=== PATIENT | female | born 1990 ===

== ENCOUNTER 2020-03-12 13:59 | Outpatient (CLI) | payer OTHER, SELFPAY ==
[2020-03-12 15:53] LABS: Add Manual Diff / Slide Review NO; Basophils Absolute Auto 0 /uL (0-100); Basophils Percent Auto 0.3 % (0-2); Eosinophils Absolute Auto 100 /uL (0-450); Eosinophils Percent Auto 0.5 % (2-4); Hematocrit 34.9 % (36-46); Hemoglobin 11.9 g/dL (12.0-16.0); Lymphocytes Absolute Auto 1700 /uL (1100-4500); Lymphocytes Percent Auto 15.2 % (25-40); Mean Corpuscular HGB Conc 34.2 % (30-36); Mean Corpuscular Hemoglobin 32.3 PG (26-34); Mean Corpuscular Volume 94.6 fL (80-100); Monocytes Absolute Auto 900 /uL (0-900); Monocytes Percent Auto 7.8 % (3-14); Neutrophils Absolute Auto 8500 /uL (1500-7000); Neutrophils Percent Auto 76.2 % (50-75); Platelet Count 304 X10^3/uL (150-400); Red Blood Cell Count 3.69 X10^6/uL (4.0-5.2); Red Cell Distribution Width 14.1 % (11.6-14.8); White Blood Cell Count 11.1 X10^3/uL (4.5-11.0)
--- NOTE | 2020-03-12 16:04 | P.TNLD_ITS ---
Visit Information Visit Information Date of evaluation: 03/16/20 Primary OB Provider: Maddie Mike Reason for Evaluation: Yes non-stress test Comments/Additional reasons for admission: Patient presents for scheduled NST for heavily calcified placenta [facility] Medical History Acid reflux Colitis (~11/2017) Eczema H/O being hospitalized (~11/2017) HPV (human papilloma virus) anogenital infection (~02/2018) Hyperemesis gravidarum Migraine Ovarian cyst SAB (spontaneous ) (~07/2017) Surgical History H/O colposcopy with cervical biopsy (~02/2018) H/O laparoscopy (~01/2017) H/O wisdom tooth extraction Family History Mother Endometriosis Father Ulcerative colitis Grandmother Cancer Grandfather Cancer Grandmother Leukemia Hemorrhage affecting 10th Grandfather Diabetes mellitus Altered cardiac tissue perfusion History of open heart surgery Tremors of nervous system Family/Other Cancer Family/Other Diverticulitis Family/Other Ovarian cancer Family/Other No problems noted. Social History marital status: household members: spouse lives independently: Yes pets and animals: No education level: high school (continued Ed) occupational status: unemployed current occupational exposures/hazards: No special tacos needs: No Smoking Status: Never smoker second hand exposure: No (Not currently but growing up : yes) alcohol intake: former (pre- : rare use) substance use type: does not use Objective Labs Result Diagrams: 03/12/20 15:47 03/12/20 15:47 Labs: Laboratory Results - last 24 hr 03/12/20 15:47 WBC 11.1 H RBC 3.69 L Hgb 11.9 L Hct 34.9 L MCV 94.6 MCH 32.3 MCHC 34.2 RDW 14.1 Plt Count 304 Neut % (Auto) 76.2 H Lymph % (Auto) 15.2 L [place] % (Auto) 7.8 Eos % (Auto) 0.5 L Baso % (Auto) 0.3 Neut # (Auto) 8500 H Lymph # (Auto) 1700 [place] # (Auto) 900 Eos # (Auto) 100 Baso # (Auto) 0 Evaluation Evaluation Laboratory results: Laboratory Tests 03/12/20 15:47 WBC 11.1 H RBC 3.69 L Hgb 11.9 L Hct 34.9 L MCV 94.6 MCH 32.3 MCHC 34.2 RDW 14.1 Plt Count 304 Neut % (Auto) 76.2 H Lymph % (Auto) 15.2 L [place] % (Auto) 7.8 Eos % (Auto) 0.5 L Baso % (Auto) 0.3 Neut # (Auto) 8500 H Lymph # (Auto) 1700 [place] # (Auto) 900 Eos # (Auto) 100 Baso # (Auto) 0
[2020-03-12 16:12] LABS: Aspartate Aminotransferase 22 IU/L (14-36); BUN Creatinine Ratio 13.7 (6-22); Blood Urea Nitrogen 7 mg/dL (7-17); Estimated Glomerular Filt Rate > 60.0 mL/min (>60); Uric Acid 3.5 mg/dL (2.5-6.2)
[2020-03-12 19:32] LABS: Creatinine Urine Random 77.9 mg/dL; Protein (Total) Urine Random 13 mg/dL (0-12); Protein Creatinine Ratio Urine 0.16 GRAM/24H
== END 2020-03-12 16:20 | disposition home or self-care (01) ==
LOC: LAB 15:23 → LABOR 16:11
PROVIDERS: Referring Provider Obstetrics & Gynecology; Visit Provider Obstetrics & Gynecology
DX: O14.90 Unspecified pre-eclampsia, unspecified trimester (principal); Z3A.36 36 weeks gestation of pregnancy
CPT/HCPCS: 36415; 59025; 82570; 84156; 84450; 84550; 85025; 87653; G0378

== ENCOUNTER 2020-03-16 14:42 | Outpatient (CLI) | payer OTHER, SELFPAY ==
--- NOTE | 2020-03-16 16:14 | PM.OBTRLD ---
Visit Information Visit Information Date of evaluation: 03/16/20 Primary OB Provider: Maddie Mike Reason for Evaluation: Yes non-stress test Comments/Additional reasons for admission: This patient is a 29-year-old at 36 and 4 with her 1st , in biweekly testing for a heavily calcified placenta on ultrasound with no other complications. Vital Signs Vital Signs: 106/61, hr 93 PFSH Medical History Acid reflux Colitis (~11/2017) Eczema H/O being hospitalized (~11/2017) HPV (human papilloma virus) anogenital infection (~02/2018) Hyperemesis gravidarum Migraine Ovarian cyst SAB (spontaneous ) (~07/2017) Surgical History H/O colposcopy with cervical biopsy (~02/2018) H/O laparoscopy (~01/2017) H/O wisdom tooth extraction Family History Mother Endometriosis Father Ulcerative colitis Grandmother Cancer Grandfather Cancer Grandmother Leukemia Hemorrhage affecting 10th Grandfather Diabetes mellitus Altered cardiac tissue perfusion History of open heart surgery Tremors of nervous system Family/Other Cancer Family/Other Diverticulitis Family/Other Ovarian cancer Family/Other No problems noted. Social History marital status: household members: spouse lives independently: Yes pets and animals: No education level: high school (continued Ed) occupational status: unemployed current occupational exposures/hazards: No special tacos needs: No Smoking Status: Never smoker second hand exposure: No (Not currently but growing up : yes) alcohol intake: former (pre- : rare use) substance use type: does not use Evaluation Evaluation Baseline heart rate: 140 Variability: Moderate (11-25) monitor accelerations: Present monitor decelerations: Absent Contraction Frequency (minutes): 1 Uterine Contraction Intensity: Mild Category of Tracing: Reactive Status: Category l Cervical dilation (cm): 0 Comments: Asymptomatic contractions on presentation, spontaneously resolved. Diagnosis, Plan/Disposition Plan/Disposition Plan: Patient scheduled for follow-up in 3 days. Routine precautions discussed. OB Disposition: home
== END 2020-03-16 16:25 | disposition home or self-care (01) ==
LOC: LABOR 14:59 → OB 03-17 09:02
PROVIDERS: Referring Provider Obstetrics & Gynecology; Visit Provider Obstetrics & Gynecology
DX: O43.893 Other placental disorders, third trimester (principal); Z3A.36 36 weeks gestation of pregnancy
CPT/HCPCS: 59025; 87081; G0378; G0379

== ENCOUNTER 2020-03-19 16:34 | Outpatient (CLI) | payer OTHER, SELFPAY ==
--- NOTE | 2020-03-19 17:14 | PM.OBTRLD ---
Visit Information Visit Information Date of evaluation: 03/19/20 Primary OB Provider: Maddie Mike Reason for Evaluation: Yes non-stress test Comments/Additional reasons for admission: Patient @37+0, in biweekly testing for calcified placenta. No other complications or complaints. Vital Signs Vital Signs: 100/69, HR 99 PFSH Medical History Acid reflux Colitis (~11/2017) Eczema H/O being hospitalized (~11/2017) HPV (human papilloma virus) anogenital infection (~02/2018) Hyperemesis gravidarum Migraine Ovarian cyst SAB (spontaneous ) (~07/2017) Surgical History H/O colposcopy with cervical biopsy (~02/2018) H/O laparoscopy (~01/2017) H/O wisdom tooth extraction Family History Mother Endometriosis Father Ulcerative colitis Grandmother Cancer Grandfather Cancer Grandmother Leukemia Hemorrhage affecting 10th Grandfather Diabetes mellitus Altered cardiac tissue perfusion History of open heart surgery Tremors of nervous system Family/Other Cancer Family/Other Diverticulitis Family/Other Ovarian cancer Family/Other No problems noted. Social History marital status: household members: spouse lives independently: Yes pets and animals: No education level: high school occupational status: unemployed current occupational exposures/hazards: No special tacos needs: No Smoking Status: Never smoker second hand exposure: No (Not currently but growing up : yes) alcohol intake: former substance use type: does not use Review of Systems Constitutional Constitutional: Reports system reviewed and no additional complaints, except as documented Evaluation Evaluation Baseline heart rate: 145 Variability: Moderate (11-25) monitor accelerations: Present monitor decelerations: Absent Uterine Contraction Intensity: Mild Category of Tracing: Reactive Status: Category l Diagnosis, Plan/Disposition Plan/Disposition Plan: Home with routie precautions. OB Disposition: home
== END 2020-03-19 17:30 | disposition home or self-care (01) ==
LOC: LABOR 16:38 → OB 03-20 11:05
PROVIDERS: Referring Provider Obstetrics & Gynecology; Visit Provider Obstetrics & Gynecology
DX: O43.893 Other placental disorders, third trimester (principal); Z3A.37 37 weeks gestation of pregnancy
CPT/HCPCS: 59025; G0378; G0379

== ENCOUNTER 2020-03-22 23:52 | Outpatient (CLI) | payer OTHER, SELFPAY | END 2020-03-23 00:39 | disposition home or self-care (01) | LOC: OB 03-23 15:29 | PROVIDERS: Referring Provider Obstetrics & Gynecology; Visit Provider Obstetrics & Gynecology | DX: O43.893 Other placental disorders, third trimester (principal); R10.2 Pelvic and perineal pain; Z3A.37 37 weeks gestation of pregnancy | CPT/HCPCS: 59025; G0378; G0379 ==

== ENCOUNTER 2020-03-26 16:15 | Outpatient (CLI) | payer OTHER, SELFPAY ==
--- NOTE | 2020-03-26 17:08 | P.TNLD_ITS ---
Visit Information Visit Information Date of evaluation: 03/26/20 Primary OB Provider: Maddie Mike On-call OB Provider: Reema Rodriguez Reason for Evaluation: Yes non-stress test non-stress test reason: other (Grade 3 placenta) Vital Signs Vital Signs: Blood pressure 112/72, pulse 92, temperature 97.1? [facility] Medical History Acid reflux Colitis (~11/2017) Eczema H/O being hospitalized (~11/2017) HPV (human papilloma virus) anogenital infection (~02/2018) Hyperemesis gravidarum Migraine Ovarian cyst SAB (spontaneous ) (~07/2017) Surgical History H/O colposcopy with cervical biopsy (~02/2018) H/O laparoscopy (~01/2017) H/O wisdom tooth extraction Family History Mother Endometriosis Father Ulcerative colitis Grandmother Cancer Grandfather Cancer Grandmother Leukemia Hemorrhage affecting 10th Grandfather Diabetes mellitus Altered cardiac tissue perfusion History of open heart surgery Tremors of nervous system Family/Other Cancer Family/Other Diverticulitis Family/Other Ovarian cancer Family/Other No problems noted. Social History marital status: household members: spouse lives independently: Yes pets and animals: No education level: high school occupational status: unemployed current occupational exposures/hazards: No special tacos needs: No Smoking Status: Never smoker second hand exposure: No (Not currently but growing up : yes) alcohol intake: former substance use type: does not use Review of Systems Review of Systems Narrative: Patient denies headaches, scotomata, epigastric pain. Good movement. No leakage of fluid. No contractions. ROS: Yes All systems reviewed with the patient and are negative except as otherwise documented Evaluation Evaluation Baseline heart rate: 130 Variability: Moderate (11-25) monitor accelerations: Present monitor decelerations: Absent Contraction Frequency (minutes): 0 Category of Tracing: Reactive Status: Category l Diagnosis, Plan/Disposition Final Diagnosis (1) Placental abnormality in third trimester: Status: Acute Plan/Disposition Plan: Reactive nonstress test. Patient is to continue nonstress tests and visits as previously scheduled OB Disposition: home
== END 2020-03-26 17:12 | disposition home or self-care (01) ==
LOC: OB 03-27 08:35
PROVIDERS: Referring Provider Specialist; Visit Provider Specialist
DX: O43.193 Other malformation of placenta, third trimester (principal); Z3A.38 38 weeks gestation of pregnancy
CPT/HCPCS: 59025; G0378; G0379

== ENCOUNTER 2020-03-30 16:59 | Outpatient (CLI) | payer OTHER, SELFPAY ==
--- NOTE | 2020-03-30 17:13 | PM.OBTRLD ---
Visit Information Visit Information Date of evaluation: 03/30/20 Primary OB Provider: Maddie Mike Reason for Evaluation: Yes non-stress test Comments/Additional reasons for admission: Scheduled NST for grade 3 placenta, no other complaints. @39+0. Declines induction. Vital Signs Vital Signs: 111/75, HR 78 PFSH Medical History Acid reflux Colitis (~11/2017) Eczema H/O being hospitalized (~11/2017) HPV (human papilloma virus) anogenital infection (~02/2018) Hyperemesis gravidarum Migraine Ovarian cyst SAB (spontaneous ) (~07/2017) Surgical History H/O colposcopy with cervical biopsy (~02/2018) H/O laparoscopy (~01/2017) H/O wisdom tooth extraction Family History Mother Endometriosis Father Ulcerative colitis Grandmother Cancer Grandfather Cancer Grandmother Leukemia Hemorrhage affecting 10th Grandfather Diabetes mellitus Altered cardiac tissue perfusion History of open heart surgery Tremors of nervous system Family/Other Cancer Family/Other Diverticulitis Family/Other Ovarian cancer Family/Other No problems noted. Social History marital status: household members: spouse lives independently: Yes pets and animals: No education level: high school occupational status: unemployed current occupational exposures/hazards: No special tacos needs: No Smoking Status: Never smoker second hand exposure: No (Not currently but growing up : yes) alcohol intake: former substance use type: does not use Review of Systems Constitutional Constitutional: Reports system reviewed and no additional complaints, except as documented Evaluation Evaluation Baseline heart rate: 135 Variability: Moderate (11-25) monitor accelerations: Present monitor decelerations: Absent Category of Tracing: Reactive Status: Category l Diagnosis, Plan/Disposition Plan/Disposition Plan: Home with scheduled f/u in clinic and precautions. OB Disposition: home
== END 2020-03-30 17:15 | disposition home or self-care (01) ==
LOC: LABOR 17:05 → OB 03-31 07:35
PROVIDERS: PCP Obstetrics & Gynecology; Referring Provider Obstetrics & Gynecology; Visit Provider Obstetrics & Gynecology
DX: O43.193 Other malformation of placenta, third trimester (principal); Z3A.38 38 weeks gestation of pregnancy
CPT/HCPCS: 59025; G0378; G0379

== ENCOUNTER 2020-04-03 16:17 | Outpatient (CLI) | payer OTHER, SELFPAY ==
--- NOTE | 2020-04-03 17:57 | PM.OBTRLD ---
Visit Information Visit Information Date of evaluation: 04/03/20 Primary OB Provider: Maddie Mike Reason for Evaluation: Yes non-stress test Comments/Additional reasons for admission: @39+1 sent for scheduled NST for calcified placenta. Vital Signs Vital Signs: 114/68, 94 PFSH Medical History Acid reflux Colitis (~11/2017) Eczema H/O being hospitalized (~11/2017) HPV (human papilloma virus) anogenital infection (~02/2018) Hyperemesis gravidarum Migraine Ovarian cyst SAB (spontaneous ) (~07/2017) Surgical History H/O colposcopy with cervical biopsy (~02/2018) H/O laparoscopy (~01/2017) H/O wisdom tooth extraction Family History Mother Endometriosis Father Ulcerative colitis Grandmother Cancer Grandfather Cancer Grandmother Leukemia Hemorrhage affecting 10th Grandfather Diabetes mellitus Altered cardiac tissue perfusion History of open heart surgery Tremors of nervous system Family/Other Cancer Family/Other Diverticulitis Family/Other Ovarian cancer Family/Other No problems noted. Social History marital status: household members: spouse lives independently: Yes pets and animals: No education level: high school occupational status: unemployed current occupational exposures/hazards: No special tacos needs: No Smoking Status: Never smoker second hand exposure: No (Not currently but growing up : yes) alcohol intake: former substance use type: does not use Evaluation Evaluation Baseline heart rate: 135 Variability: Moderate (11-25) monitor accelerations: Present monitor decelerations: Absent Category of Tracing: Reactive Status: Category l Diagnosis, Plan/Disposition Plan/Disposition Plan: Home with scheduled follow up. OB Disposition: home
== END 2020-04-03 17:15 | disposition home or self-care (01) ==
LOC: LABOR 16:44 → OB 04-07 07:49
PROVIDERS: Referring Provider Obstetrics & Gynecology; Visit Provider Obstetrics & Gynecology
DX: O43.193 Other malformation of placenta, third trimester (principal); Z3A.39 39 weeks gestation of pregnancy
CPT/HCPCS: 59025; G0378; G0379

== ENCOUNTER → 2020-04-07 12:22 | Outpatient (CLI) | payer OTHER, SELFPAY ==
[2020-04-07 12:53] LABS: COVID19 -Nasal RAPID Negative (Negative)
== END ==
PROVIDERS: Visit Provider Obstetrics & Gynecology
DX: Z01.812 Encounter for preprocedural laboratory examination (principal); Z20.822 Contact with and (suspected) exposure to COVID-19
CPT/HCPCS: 87635

== ENCOUNTER 2020-04-07 12:33 | Outpatient (CLI) | payer OTHER, SELFPAY ==
--- NOTE | 2020-04-07 13:14 | PM.OBTRLD ---
Visit Information Visit Information Date of evaluation: 04/07/20 Primary OB Provider: Maddie Mike Reason for Evaluation: Yes non-stress test Comments/Additional reasons for admission: Patient sent for scheduled NST for grade 3 placenta with no obstetrical complaints. Vital Signs Vital Signs: 98/60 PFSH Medical History Acid reflux Colitis (~11/2017) Eczema H/O being hospitalized (~11/2017) HPV (human papilloma virus) anogenital infection (~02/2018) Hyperemesis gravidarum Migraine Ovarian cyst SAB (spontaneous ) (~07/2017) Surgical History H/O colposcopy with cervical biopsy (~02/2018) H/O laparoscopy (~01/2017) H/O wisdom tooth extraction Family History Mother Endometriosis Father Ulcerative colitis Grandmother Cancer Grandfather Cancer Grandmother Leukemia Hemorrhage affecting 10th Grandfather Diabetes mellitus Altered cardiac tissue perfusion History of open heart surgery Tremors of nervous system Family/Other Cancer Family/Other Diverticulitis Family/Other Ovarian cancer Family/Other No problems noted. Social History marital status: household members: spouse lives independently: Yes pets and animals: No education level: high school occupational status: unemployed current occupational exposures/hazards: No special tacos needs: No Smoking Status: Never smoker second hand exposure: No (Not currently but growing up : yes) alcohol intake: former substance use type: does not use Exam Const General: cooperative, healthy appearing and comfortable Evaluation Evaluation Baseline heart rate: 140 Variability: Moderate (11-25) monitor accelerations: Present monitor decelerations: Absent Contraction Frequency (minutes): 7 Category of Tracing: Reactive Status: Category l Diagnosis, Plan/Disposition Plan/Disposition Plan: Home with stringent precautions and return for cervical ripening tomorrow night. 10/11 BPP in office. OB Disposition: home
== END 2020-04-07 13:35 | disposition home or self-care (01) ==
LOC: LABOR 12:52 → OB 04-08 11:23
PROVIDERS: Referring Provider Obstetrics & Gynecology; Visit Provider Obstetrics & Gynecology
DX: O43.193 Other malformation of placenta, third trimester (principal); O36.8130 Decreased fetal movements, third trimester, not applicable or unspecified; Z3A.39 39 weeks gestation of pregnancy; Z20.822 Contact with and (suspected) exposure to COVID-19; Z01.812 Encounter for preprocedural laboratory examination
CPT/HCPCS: 59025; 87635; G0378; G0379

== ENCOUNTER 2020-04-08 09:24 | Inpatient (IN) | payer OTHER, SELFPAY ==
[2020-04-08 14:36] VITALS: BP 121/62
--- NOTE | 2020-04-08 18:48 | PM.OBHP.1 ---
OB HPI Date/Time Date of admission: 04/08/20 Date Patient Seen: 04/08/20 Time Patient Seen: 18:50 History of Present Condition Chief complaint: NST : 2 Para: 0 Estimated Date of Delivery: 04/09/20 Estimated Gestational Age (weeks): 39+6 Narrative: Edilma Colin is a 29 year old female 2 para 0 at 39 and 6 7th weeks gestation who presented for a nonstress test for decreased movement earlier today. The baby had periods of minimal mmry-ij-kozn variability followed by periods of moderate variability. Decision was made to keep her all day on continuous monitoring. She was initially scheduled to come in this evening for Cervidil. Her cervix is favorable and that is not necessary at this time. Indications Indication for induction OB: other (Grade 3 placenta from 30 weeks gestation) History of Present care: good care Dating criteria: LMP confirmed by 1st trimester US Ultrasounds: normal 1st trimester US and normal mid trimester US Abnormal ultrasound findings: Grade 3 placenta starting at 30 weeks gestation Obstetrical complications: other (Grade 3 placenta starting at 30 weeks gestation) Medical complications: none Preadmission Labs Blood type: A (+) positive -: Antibody screen: negative, GBS status: negative, HBsAG: negative, HIV: negative and RPR/VDLR: negative -: Chlamydia screen: not detected and Gonorrhea screen: not detected -: Rubella: immune and Varicella: immune HCT: 34.9 1 hr GTT: 138 Prior (ies) History: 1 SAB Evaluation Evaluation Baseline heart rate: 140 Variability: Average (6-10) monitor accelerations: Present monitor decelerations: Variable (Occasional) Contraction Frequency (minutes): 8 Uterine Contraction Intensity: Mild Status: Category ll Cervical dilation (cm): 4 Cervical effacement (%): 85 station: -1 [facility] Medical History Acid reflux Colitis (~11/2017) Eczema H/O being hospitalized (~11/2017) HPV (human papilloma virus) anogenital infection (~02/2018) Hyperemesis gravidarum Migraine Ovarian cyst SAB (spontaneous ) (~07/2017) Surgical History H/O colposcopy with cervical biopsy (~02/2018) H/O laparoscopy (~01/2017) H/O wisdom tooth extraction Family History Mother Endometriosis Father Ulcerative colitis Grandmother Cancer Grandfather Cancer Grandmother Leukemia Hemorrhage affecting 10th Grandfather Diabetes mellitus Altered cardiac tissue perfusion History of open heart surgery Tremors of nervous system Family/Other Cancer Family/Other Diverticulitis Family/Other Ovarian cancer Family/Other No problems noted. Social History marital status: household members: spouse lives independently: Yes pets and animals: No education level: high school occupational status: unemployed current occupational exposures/hazards: No special tacos needs: No Smoking Status: Never smoker second hand exposure: No (Not currently but growing up : yes) alcohol intake: former substance use type: does not use Meds Home Medications and Allergies Home Medications Medication Instructions Recorded Confirmed Type ferrous sulfate 325 mg (65 mg 325 mg PO DAILY 01/01/20 03/26/20 History iron) tablet prenat.vits,surya,gqt-ntim-biaik 1 tab PO DAILY 01/01/20 03/26/20 History calcium carbonate 200 mg calcium 200 mg PO BID 01/06/20 03/26/20 History (500 mg) chewable tablet Double Electric Breast Pump #1 ea 02/18/20 03/26/20 Rx Allergies Allergy/AdvReac Type Severity Reaction Status Date / Time No Known Drug Allergies Allergy Verified 01/06/20 11:12 Exam Vital Signs (past 8 hours): - 04/08/20 14:36 Blood Pressure 121/62 Narrative Exam Narrative: Generally: Patient is sitting up in bed, no acute distress Lungs: Clear to auscultation bilaterally Cardiovascular: Regular rate and rhythm Fundal height: 39 cm Estimated weight: 7-1/2 lb Extremities: 1+ DTR, trace edema Assessment and Plan Assessment and Plan Assessment and Plan narrative: Assessment: 29-year-old 2 para 0 at 39 and 6 7th weeks gestation who was scheduled for cervical ripening and induction of labor She presented with decreased movement earlier today and had a category 2 tracing with episodes of minimal naca-my-zjmk variability followed by periods of average uued-mu-djzv and moderate zugr-yu-oofx variability. No significant decelerations. Occasional variables. Favorable cervix Plan: Continuous monitoring overnight Nipple stimulation Artificial rupture of membranes in the morning Time Spent with Patient Total time spent with greater than 50% in coordination of care (as documented) at patient's floor/unit and/or counseling patient:: 15-24 minutes
[2020-04-08 23:01] LABS: Add Manual Diff / Slide Review NO; Basophils Absolute Auto 0 /uL (0-100); Basophils Percent Auto 0.3 % (0-2); Eosinophils Absolute Auto 0 /uL (0-450); Eosinophils Percent Auto 0.4 % (2-4); Hematocrit 38.8 % (36-46); Hemoglobin 13.3 g/dL (12.0-16.0); Lymphocytes Absolute Auto 1800 /uL (1100-4500); Lymphocytes Percent Auto 18.7 % (25-40); Mean Corpuscular HGB Conc 34.2 % (30-36); Mean Corpuscular Hemoglobin 32.5 PG (26-34); Mean Corpuscular Volume 95.2 fL (80-100); Monocytes Absolute Auto 700 /uL (0-900); Monocytes Percent Auto 7.3 % (3-14); Neutrophils Absolute Auto 7000 /uL (1500-7000); Neutrophils Percent Auto 73.3 % (50-75); Platelet Count 279 X10^3/uL (150-400); Red Blood Cell Count 4.08 X10^6/uL (4.0-5.2); Red Cell Distribution Width 14.6 % (11.6-14.8); White Blood Cell Count 9.6 X10^3/uL (4.5-11.0)
--- NOTE | 2020-04-09 07:47 | PM.OBPNLAB ---
Date/Time Date Patient Seen: 04/09/20 Time Patient Seen: 07:47 Pain Control Pain control: tolerating well Pelvic Exam Dilation (cm): 3 Effacement (%): 80 station: -1 Amniotic membrane status: Ruptured (AROM, clear) Contractions Contraction frequency (min): 5 Contraction intensity: Mild Status status: Category ll Heart Rate Baseline: 135 Monitor Accelerations: Present Monitor Decelerations: Absent Monitor Variability: Moderate Comments: Periods of minimal variability, then periods of moderate variability with accels and copious movement. Assessment and Plan Assessment: induction ongoing Plan: begin patient augmentation Comments: This patient is a 29yo @40+0 with a grade 3 placenta, who presented with decreased movement. The patient initially desired expectant management and was encouraged to engage in nipple stimulation and ambulation. This AM, her cervix has made minimal further change, and the long periods of minimal variability on EFM with her known markedly calcified placenta on ultrasound mean that delivery should be expidited. We discussed AROM which was performed this morning, with pitocin later this AM if she does not labor. We discussed risk of intolerance of labor and section under the circumstances.
--- NOTE | 2020-04-09 10:38 | PM.OBPNLAB ---
Date/Time Date Patient Seen: 04/09/20 Time Patient Seen: 10:30 Pelvic Exam Dilation (cm): 3 Effacement (%): 100 station: -1 Amniotic membrane status: Ruptured (AROM, clear) Comments: clear fluid Contractions Contractions on admission: regular Contraction frequency (min): 5 Contraction pattern: Regular Contraction intensity: Strong/Firm Status status: Category l Heart Rate Baseline: 140 Monitor Accelerations: Present Monitor Decelerations: Absent Monitor Variability: Moderate Assessment and Plan Plan: continuous present management Comments: Patient beginning to contract regularly and efface, continue expectant management.
--- NOTE | 2020-04-09 14:22 | PM.OBPNLAB ---
Date/Time Date Patient Seen: 04/09/20 Time Patient Seen: 14:22 Pain Control Comments: Patient desires epidural. Pelvic Exam Dilation (cm): 8 Effacement (%): 100 station: -1 Amniotic membrane status: Ruptured (AROM, clear) Contractions Contraction frequency (min): 2 Contraction intensity: Strong/Firm Status status: Category ll Heart Rate Baseline: 135 Monitor Accelerations: Present Monitor Variability: Moderate Comments: MOnitoring c/b significant maternal movement and activity, more audible at bedside than in room. moderate variability, +accels, +scalp stim. Unclear if decels or maternal HR. Assessment and Plan Plan: continuous present management Comments: Patient laboring without further augmentation. Desires epidural.
[2020-04-09] MEDS: LACTATED RINGERS 1,000 ML 125 ML IV ×2 (15:30→21:27)
[2020-04-09] MEDS: OXYTOCIN PREMIX 30 UNIT/500 ML PLAST..BAG 333 UNIT IV (19:40)
--- NOTE | 2020-04-09 20:26 | PM.CN ---
History of Present Illness Consult details Date Patient Seen: 04/09/20 Time Patient Seen: 19:30 Chief complaint: NST Reason for consult: Forceps Requesting provider: Maddie Mike Narrative: Patient is a 29-year-old at 40 weeks being induced for grade 3 placenta changes. Patient has been pushing for over 2 hours with minimal progress. I was consulted to see if forceps could be applied to assist in delivery rather than proceeding with section. Meds Home Medications and Allergies Home Medications Medication Instructions Recorded Confirmed Type ferrous sulfate 325 mg (65 mg 325 mg PO DAILY 01/01/20 04/08/20 History iron) tablet prenat.vits,surya,frg-fwrs-wsjlc 1 tab PO DAILY 01/01/20 04/08/20 History calcium carbonate 200 mg calcium 200 mg PO BID 01/06/20 04/08/20 History (500 mg) chewable tablet Double Electric Breast Pump #1 ea 02/18/20 04/08/20 Rx Allergies Allergy/AdvReac Type Severity Reaction Status Date / Time No Known Drug Allergies Allergy Verified 01/06/20 11:12 Exam Narrative Exam Narrative: Fetus caput is at +1 and asynclitic. The forceps were applied without too much difficulty. With the 1st set of pushes the fetus was brought to the +2 station. The next set of pushes the fetus was brought to +3 station. The head was delivered with the 3rd set of pushes. Dr. Mike took over the rest of delivery of the . Apgars were 9 and 9. Objective Labs Result Diagrams: 04/08/20 22:40 Labs: Laboratory Results - last 24 hr 04/08/20 04/08/20 22:40 22:40 WBC 9.6 RBC 4.08 Hgb 13.3 Hct 38.8 MCV 95.2 MCH 32.5 MCHC 34.2 RDW 14.6 Plt Count 279 Neut % (Auto) 73.3 Lymph % (Auto) 18.7 L [place] % (Auto) 7.3 Eos % (Auto) 0.4 L Baso % (Auto) 0.3 Neut # (Auto) 7000 Lymph # (Auto) 1800 [place] # (Auto) 700 Eos # (Auto) 0 Baso # (Auto) 0 Blood Type A Positive Antibody Screen Negative Assessment & Plan Assessment & Plan narrative: Second-stage arrest with successful forceps assisted vaginal delivery. See Dr. [place] note for the rest of the delivery and repair.
[2020-04-09] MEDS: ONDANSETRON 4 MG/2 ML INJ IV (21:09)
[2020-04-09] MEDS: METHYLERGONOVINE 0.2 MG/ML VIAL IM (21:25)
--- NOTE | 2020-04-09 21:44 | PM.OBPRVD ---
Events: Other (heavily calcified grade 3 placenta) Labor & Delivery Delivery date: 04/09/20 Intrapartal Events: Acceleration and Deceleration Cervical ripening method: none Induction method: AROM Delivery monitor: external FHT and external uterine Route of delivery: forceps Indication for instrumentation: nonreassuring FHR tracing L&D Laceration Description: Perineal - 2nd Degree and Labial Delivery repair: vicryl Estimated blood loss (mL): 400 Anesthesia Type: Epidural Complications: cat 2 EFM Narrative: This patient was admitted for induction of labor at 40 weeks gestation in the setting of a heavily calcified placenta and decreased movement. She was induced with AROM and progressed rapidly though with a cat 2 EFM. After a 2 hour second stage, the patient had an increasingly concerning cat 2 EFM with deepening variables and a rising baseline, remote from delivery with maternal exhaustion. She was counselled about assisted vaginal delivery vs. section, and opted for assisted vaginal delivery. Dr. Rodriguez was counselled for a forceps assisted delivery as detailed in her note. The patient was noted to be 3+ station with a johnson removed just before the forceps and an RAF though asynclitic presentation. The forceps were uncomplicated, the shoulders delivered with ease, and there was no nuchal cord. A 2nd degree perineal laceration extended to the labia bilaterally, and was repaired with 2-0 and 3-0 vicryl in the usual fashion. The placenta delivered spontaneously and intact shortly after delivery, with a three vessel cord. The patient received 30mU of pitocin in 500ccs fluids per the usual protocol. Her recovery was uncomplicated. [facility] 1: gender: Female Presentation: vertex Position: Left Occiput Anterior Placenta delivery description: Spontaneous Cord Vessel Description: 3 Vessels score (1 min): 8 score (5 min): 9 weight: 7 lb 14 oz Plan for aftercare: Routine care
[2020-04-09] MEDS: IBUPROFEN 600 MG TABLET PO (23:56)
[2020-04-10] MEDS: IBUPROFEN 600 MG TABLET PO ×3 (06:00→23:34)
[2020-04-10] MEDS: LANOLIN OINT 7 GM 1 APPLIC TOP (08:00)
[2020-04-10] MEDS: DERMOPLAST SPRAY 20% 60 ML 1 SPRAY TOP (08:01)
[2020-04-10] MEDS: DOCUSATE 100 MG CAPSULE PO (08:01)
[2020-04-10] MEDS: PRENATAL VIT,CALC/IRON/FOLIC 1 TABLET 1 TAB PO (08:01)
[2020-04-10 08:24] VITALS: TEMP 36.4
[2020-04-10] MEDS: ACETAMINOPHEN 325 MG TABLET 650 MG PO (08:24)
[2020-04-10] MEDS: ONDANSETRON 4 MG/2 ML INJ IV ×2 (11:23→20:30)
[2020-04-10] MEDS: OXYCODONE IR 5 MG TABLET PO ×2 (11:26→20:30)
--- NOTE | 2020-04-10 13:26 | P.PNOB_ITS ---
Subjective - OB Subjective Patient comments: no complaints and tolerating diet [place] baby status: doing well feeding status: exclusively breast feeding Narrative: This patient is day 1 status post forceps assisted vaginal delivery in the setting of induction for a grade 3 placenta at 40 weeks gestation. Date Patient Seen: 04/10/20 Time Patient Seen: 08:20 Interval history: The patient is recovering appropriately, with good pain control on p.o. medications, ambulating, voiding, passing flatus, tolerating p.o.. well. No signs or symptoms of PIH. Exam Vital Signs (past 8 hours): - 04/10/20 08:24 Temperature 97.6 F Const General: cooperative, healthy appearing and comfortable Resp Effort & Inspection: normal respiratory effort Auscultation: clear to auscultation bilaterally Cardio Rate: regular rate Rhythm: regular rhythm GI Palpation: soft and No tender (Fundus firm, well below U) External Female Exam: normal external appearance (Stitches intact, swelling decreasing) Extrem General: normal to inspection Objective Labs Result Diagrams: 04/08/20 22:40 Assessment & Plan Plan day: 1 plan OB: routine care Comments: This patient is recovering well, meeting goals appropriately. Anticipate discharge later today. Time Spent With Patient Time: Total time spent is greater than 50% in coordination of care (as documented) at patient's floor/unit and/or counseling patient: Time with patient: 15-24 minutes
[2020-04-10 17:34] VITALS: TEMP 36.6
[2020-04-11] MEDS: IBUPROFEN 600 MG TABLET PO (05:17)
[2020-04-11] MEDS: DOCUSATE 100 MG CAPSULE PO (08:58)
[2020-04-11] MEDS: PRENATAL VIT,CALC/IRON/FOLIC 1 TABLET 1 TAB PO (08:58)
--- NOTE | 2020-04-11 09:50 | PM.OBDS.1 ---
Discharge Providers Provider Date of admission: 04/08/20 09:24 Discharge Date: 04/11/20 Consults: 04/10/20 21:51 Consult to [facility] Routine Comment: Discharge provider: Maddie Mike MD Summary Hospital Course Date Patient Seen: 04/11/20 Time Patient Seen: 09:51 Diagnoses: Forceps assisted vaginal delivery Hospital Course: This patient was admitted for induction of labor at 40 weeks with decreased movement and a grade 3, heavily calcified placenta. She was induced with AROM, and progressed to fully dilated with a cat 2 tracing. Due to a cat 2 EFM, the patient was counselled on assisted delivery vs. section and opted for forceps assisted vaginal delivery, as detailed in Dr. Rodriguez's note. The delivery was uncomplicated and a 2nd degree perineal laceration repaired in the usual fashion, and she was discharged on PPD#2 with routine precautions. Peripartum Data Delivery Method: Assisted Delivery Laceration Description: Perineal - 2nd Degree and Labial Procedures: Forceps assisted vaginal delivery complications: none [place]: Gender: Male Disposition of : home Status at Discharge Cognitive/behavioral status at discharge: oriented Functional status at discharge: independent ambulation Overall status at discharge: patient is progressing back to baseline Time Spent with Patient Time attestation: Total time spent providing and/or coordinating discharge services: Time spent: Greater than 30 minutes Objective Labs Result Diagrams: 04/08/20 22:40 Exam Vital Signs (past 8 hours): 104/67, HR 101 Narrative Exam Narrative: Patient well appearing, good pain control. Mild lochia, voiding, passing flatus, tolerating PO, no other symptoms. Const General: cooperative, healthy appearing and comfortable Resp Effort & Inspection: normal respiratory effort Auscultation: clear to auscultation bilaterally Cardio Rate: regular rate Rhythm: regular rhythm GI Palpation: soft and No tender (fundus well below u) Skin General: no rashes or lesions noted Discharge Plan Discharge Plan Patient Disposition: Home Discharge orders & Medications Prescriptions: New oxycodone 5 mg tablet 5 mg PO Q6H PRN (Reason: pain) Qty: 14 RF: 0 ibuprofen 200 mg tablet 200 mg PO Q6H PRN (Reason: pain) Qty: 20 RF: 0 Continued prenat.vits,surya,jnq-plsi-tbubs Tablet 1 tab PO DAILY RF: 0 ferrous sulfate [Feosol] 325 mg (65 mg iron) tablet 325 mg PO DAILY RF: 0 calcium carbonate [Tums] 200 mg calcium (500 mg) tablet,chewable 200 mg PO BID RF: 0 (DME) Double Electric Breast Pump See Rx Instructions .Route .MEDSUPPLY Qty: 1 RF: 0 Follow up/Referrals: Maddie Mike MD [Physician] - 6 Weeks Diet/Activity/Treatments Diet: Regular Activity: Nothing in the vagina for 6 weeks. Avoid lifting more than 10 lbs for 6 weeks. If you have increasing bleeding, fevers, chills, nausea, vomiting, headaches, visual changes, or any other symptoms or concerns, call or come to the emergency room. Skin/Wound/Dressing Care Report to your healthcare provider any signs of infection, such as:: chills, fever, night sweats, increased pain, unusual drainage and unusual redness Visit Report/Discharge Packet Instructions: DI for Vulvo-vaginal Tears, DI for Labor and Delivery, Vaginal
== END 2020-04-11 11:17 | disposition home or self-care (01) | DRG 807 ==
PROVIDERS: Admitting Provider Obstetrics & Gynecology; Referring Provider Obstetrics & Gynecology; Visit Provider Obstetrics & Gynecology
DX: O76 Abnormality in fetal heart rate and rhythm complicating labor and delivery (principal); Z37.0 Single live birth; O48.0 Post-term pregnancy; O62.1 Secondary uterine inertia; O70.1 Second degree perineal laceration during delivery; O75.81 Maternal exhaustion complicating labor and delivery; Z3A.40 40 weeks gestation of pregnancy; O43.213 Placenta accreta, third trimester; Z20.822 Contact with and (suspected) exposure to COVID-19
CPT/HCPCS: 01967; 36415; 59050; 59410; 85025; 86850; 86900; 86901; 99251; G0379; J2210; J2405; J2590

== ENCOUNTER 2022-03-18 21:21 | Emergency (ER) | payer OTHER, SELFPAY ==
[2022-03-18 21:39] VITALS: BP 107/88; PULSE 99; RESP 18; TEMP 36.7; O2SAT 99
[2022-03-18 22:12] LABS: Add Manual Diff / Slide Review NO; Basophils Absolute Auto 0 /uL (0-100); Basophils Percent Auto 0.2 % (0-2); Eosinophils Absolute Auto 0 /uL (0-450); Eosinophils Percent Auto 0.1 % (2-4); Hematocrit 41.6 % (36-46); Lymphocytes Absolute Auto 900 /uL (1100-4500); Lymphocytes Percent Auto 4.4 % (25-40); Mean Corpuscular HGB Conc 33.6 % (30-36); Mean Corpuscular Hemoglobin 29.9 PG (26-34); Monocytes Absolute Auto 700 /uL (0-900); Monocytes Percent Auto 3.1 % (3-14); Neutrophils Absolute Auto 19100 /uL (1500-7000); Neutrophils Percent Auto 92.2 % (50-75); Platelet Count 396 X10^3/uL (150-400); Red Blood Cell Count 4.68 X10^6/uL (4.0-5.2); White Blood Cell Count 20.8 X10^3/uL (4.5-11.0)
[2022-03-18 22:46] LABS: Influenza A - CEPHEID Flu A NEGATIVE (NEGATIVE); Influenza B - CEPHEID Flu B NEGATIVE (NEGATIVE); Respiratory Syncytial Virus Negative (Negative)
[2022-03-18 22:49] LABS: COVID-19 CEPHEID 4-PLEX PCR Negative (Negative)
[2022-03-18 23:05] LABS: Alanine Aminotransferase 15 IU/L (<35); Albumin Globulin Ratio 1.5 (1.0-2.8); Alkaline Phosphatase 62 U/L (38-126); Aspartate Aminotransferase 27 IU/L (14-36); BUN Creatinine Ratio 20.5 (6-22); Blood Urea Nitrogen 15 mg/dL (7-17); Calcium 9.2 mg/dL (8.4-10.2); Carbon Dioxide 24 mmol/L (22-32); Chloride 104 mmol/L (98-107); Estimated Glomerular Filt Rate > 60 mL/min (>60); Globulin 3.4 g/dL (1.7-4.1); Glucose 132 mg/dL (70-100); HEMOLYSIS < 15 (0-50); Potassium 3.5 mmol/L (3.4-5.1); Sodium 140 mmol/L (137-145); Total Protein 8.4 g/dL (6.3-8.2)
[2022-03-18 23:26] LABS: Lipase 83 U/L (23-300)
[2022-03-19] MEDS: SODIUM CHLORIDE 0.9% 1,000 ML 1000 ML IV ×2 (01:25→02:41)
--- NOTE | 2022-03-19 01:53 | ED_ITS ---
HPI - Nausea/Vomiting/Diarrhea General Chief complaint: Nausea/Vomiting/Diarrhea Stated complaint: Nausea, Vomiting Time Seen by Provider: 03/19/22 01:30 Source: patient Mode of arrival: Ambulatory Limitations: no limitations History of Present Illness HPI Narrative: This is a 31-year-old female with history of hyperemesis during . Patient states she is had nausea vomiting and diarrhea that started about 7:00 p.m. on 03/18/2022. Patient states her son had similar symptoms the day before he was given Zofran here in the emergency department they did not find an exact cause but his symptoms have been resolving and he is returning to normal. Patient states no fevers or chills. No chest pain or shortness breath. She states started with nausea and vomiting initially food and then bile. She states some epigastric pain after vomiting a lot. Her back started to hurt after she vomited for about an hour straight. Patient denies black or bloody stools but has had diarrhea. None here in the department. Patient denies dysuria urgency or frequency. She is currently on her menses. No discharge. Patient states she would an exploratory laparotomy to evaluate for endometriosis it was negative. She states no known drug allergies but Reglan does make her feel very anxious. Denies tobacco, no alcohol or illicit. Related Data Home Medications Medication Instructions Recorded Confirmed ferrous sulfate 325 mg (65 mg 325 mg PO DAILY 01/01/20 05/22/20 iron) tablet (Feosol) prenat.vits,surya,qum-jjcb-zucbw 1 tab PO DAILY 01/01/20 05/22/20 Previous Rx's Medication Instructions Recorded Double Electric Breast Pump #1 ea 02/18/20 desogestrel-e.estradiol 0.15 1 tab PO DAILY Contraception #84 05/22/20 mg-0.02 mg(21)/e.estrad 0.01 mg(5) tabs tablet (Kariva (28)) Breast Pump Supplies #1 ea 07/15/20 promethazine 25 mg tablet 25 mg PO QID PRN nausea and 03/19/22 vomiting #5 tabs Allergies Allergy/AdvReac Type Severity Reaction Status Date / Time No Known Drug Allergies Allergy Verified 03/18/22 21:43 Review of Systems Review of Systems ROS Unobtainable: All systems reviewed & are unremarkable except as noted in HPI and below Patient History Medical History Acid reflux Colitis (~11/2017) Eczema H/O being hospitalized (~11/2017) HPV (human papilloma virus) anogenital infection (~02/2018) Hyperemesis gravidarum Migraine Ovarian cyst SAB (spontaneous ) (~07/2017) Surgical History H/O colposcopy with cervical biopsy (~02/2018) H/O laparoscopy (~01/2017) H/O wisdom tooth extraction Family History Mother Endometriosis Father Ulcerative colitis Grandmother Cancer Grandfather Cancer Grandmother Leukemia Hemorrhage affecting 10th Grandfather Diabetes mellitus Altered cardiac tissue perfusion History of open heart surgery Tremors of nervous system Family/Other Cancer Family/Other Diverticulitis Family/Other Ovarian cancer Family/Other No problems noted. Social History marital status: household members: spouse lives independently: Yes pets and animals: No education level: high school occupational status: unemployed current occupational exposures/hazards: No special tacos needs: No Smoking Status: Never smoker second hand exposure: No (Not currently but growing up : yes) alcohol intake: former substance use type: does not use Smoking Status: Never smoker alcohol intake frequency: other Substance Use Type: does not use Exam Narrative Exam Narrative: GENERAL: Alert and oriented x three, female in mild distress HEENT: Head normocephalic, atraumatic, EOMI, pupils reactive, face symmetric, moist mucous membranes NECK: Supple, full range of motion CARDIOVASCULAR: Regular rate and rhythm without murmurs, rubs or gallops. RESPIRATORY: Breath sounds equal bilaterally, no wheezes rales or rhonchi. ABDOMEN: Soft, nontender. Nondistended. Normoactive bowel sounds all 4 quadrants. No guarding or rebound, rigidity, no mass : No CVA tenderness EXTREMITIES: Normal range of motion, no clubbing or edema. Neurovascularly intact NEUROLOGICAL: Cranial nerves II through XII grossly intact. Moving all extremities SKIN: Warm, dry, no petechiae, no rashes or lesions. Initial Vital Signs Initial Vital Signs: Vital Signs Temperature 98.1 F 03/18/22 21:39 Pulse Rate 99 H 03/18/22 21:39 Respiratory Rate 18 03/18/22 21:39 Blood Pressure 107/88 03/18/22 21:39 Pulse Oximetry 99 03/18/22 21:39 Oxygen Delivery Method 03/18/22 21:39 Course Orders Ordered: Discontinued Medications Diphenhydramine HCl (Diphenhydramine 50 Mg/Ml Vial) 25 mg IV NOW ONE Stop: 03/19/22 02:14 Last Admin: 03/19/22 02:41 Dose: 25 mg Documented By: MARGARITA Sodium Chloride (Normal Saline 0.9%) 1,000 mls @ 1,000 mls/hr IV BOLUS ONE Stop: 03/18/22 22:51 Last Infusion: 03/19/22 02:42 Dose: 0 mls/hr Documented By: Admin: 03/19/22 01:25 Dose: 1,000 mls/hr Documented By: MARGARITA Sodium Chloride (Normal Saline 0.9%) 1,000 mls @ 1,000 mls/hr IV BOLUS ONE Stop: 03/19/22 03:12 Last Infusion: 03/19/22 03:50 Dose: 0 mls/hr Documented By: Admin: 03/19/22 02:41 Dose: 1,000 mls/hr Documented By: MARGARITA Ondansetron HCl (Ondansetron 4 Mg Odt) 4 mg PO NOW ONE Stop: 03/18/22 21:47 Last Admin: 03/18/22 23:23 Dose: Not Given Documented By: CITLALY Ondansetron HCl (Ondansetron 4 Mg/2 Ml Inj) 4 mg IV NOW PRN PRN Reason: Nausea And Vomiting Promethazine HCl (Promethazine 25 Mg Prepack) 1 bottle MISC SEEINSTR ONE Stop: 03/19/22 05:47 Vital Signs Vital signs: Vital Signs - 8 hr 03/18/22 21:39 Temperature 98.1 F Pulse Rate 99 H Respiratory Rate 18 Blood Pressure 107/88 Pulse Oximetry 99 Oxygen Delivery Method Room Air MDM - Nausea/Vomiting/Diarrhea Lab Data Result diagrams: 03/18/22 21:58 03/18/22 21:58 Labs: Lab Results 03/18/22 03/18/22 03/18/22 Range/Units 21:58 21:58 22:01 WBC 20.8 H (4.5-11.0) X10^3/uL RBC 4.68 (4.0-5.2) X10^6/uL Hgb 14.0 (12.0-16.0) g/dL Hct 41.6 (36-46) % MCV 89.0 (80-100) fL MCH 29.9 (26-34) PG MCHC 33.6 (30-36) % RDW 14.0 (11.6-14.8) % Plt Count 396 (150-400) X10^3/uL Neut % (Auto) 92.2 H (50-75) % Lymph % (Auto) 4.4 L (25-40) % Rooks % (Auto) 3.1 (3-14) % Eos % (Auto) 0.1 L (2-4) % Baso % (Auto) 0.2 (0-2) % Neut # (Auto) 26540 H (4848-7478) /uL Lymph # (Auto) 900 L (6018-8712) /uL Rooks # (Auto) 700 (0-900) /uL Eos # (Auto) 0 (0-450) /uL Baso # (Auto) 0 (0-100) /uL Sodium 140 (137-145) mmol/L Potassium 3.5 (3.4-5.1) mmol/L Chloride 104 (98-107) mmol/L Carbon Dioxide 24 (22-32) mmol/L BUN 15 (7-17) mg/dL Creatinine 0.73 (0.52-1.04) mg/dL Estimated GFR > 60 (>60) mL/min BUN/Creatinine Ratio 20.5 (6-22) Glucose 132 H (70-100) mg/dL Calcium 9.2 (8.4-10.2) mg/dL Total Bilirubin 1.0 (0.2-1.3) mg/dL AST 27 (14-36) IU/L ALT 15 (<35) IU/L Alkaline Phosphatase 62 (38-126) U/L Total Protein 8.4 H (6.3-8.2) g/dL Albumin 5.0 (3.5-5.0) g/dL Globulin 3.4 (1.7-4.1) g/dL Albumin/Globulin Ratio 1.5 (1.0-2.8) Lipase 83 (23-300) U/L SARS-CoV-2 (PCR) Negative (Negative) Influenza A (RT-PCR) Flu a negative (NEGATIVE) Influenza B (RT-PCR) Flu b negative (NEGATIVE) RSV (PCR) Negative (Negative) Point of Care Testing Test Results Negative Urine Dip Bedside Urine Glucose Negative Bedside Urine Bilirubin - Negative Bedside Urine Ketone + 15 Urine Specific [place] 1.030 Bedside Urine Occult Blood +++ Bedside Urine pH 5.5 Bedside Urine Protein - Negative Bedside Urine Urobilinogen - Negative Bedside Urine Nitrite - Negative Bedside Urine Leukocytes - Negative Esterase MDM Narrative Medical decision making narrative: This is a 31-year-old female who presented with nausea and vomiting and diarrhea. Patient patient's has white count of 20 I suspect this is more reac tive recent illness at home her son had the same symptoms yesterday and he is already improving. CMP shows a glucose of 132 normal renal function, electrolytes and LFTs. Patient is COVID, influenza and RSV negative. Patient has not given a urine sample despite L of fluids. She is not actively vomiting anymore after Zofran but is still nauseated. Discussed with patient will give a 2 L fluids, some Benadryl IV as we do not have Phenergan which she is taken the past. Will re-evaluate and see if patient can give urine sample. Her abdominal exam is overall reassuring so holding off on any additional imaging at this time. Patient has not had any additional vomiting. She has taken a little bit of oral hydration and has not vomited. She still has some nausea but denies any pain. Has ambulated to the bathroom has not ketones but no signs of infection, no . Discussed with patient she does not feel back to normal but feels improved. Plan for discharge home but with strict return precautions. Phenergan which she states it has been helpful in the past. Discharge Plan Departure Patient Disposition: Home Clinical Impression: Nausea vomiting and diarrhea, Forceps delivery with baby delivered Instructions: DI for Vomiting -- Adult Activity Restrictions/Additional Instructions: I hope you continue to feel better. You may take Phenergan 1 tablet every 6 hours as needed. Prescription sent to [facility] in [place]. Please return for new or worsening symptoms, persistent fevers, persistent vomiting, vomiting blood, black or bloody stools, new or worsening abdominal, back or flank pain or other new or concerning changes. Prescriptions: New promethazine 25 mg tablet 25 mg PO QID PRN (Reason: nausea and vomiting) Qty: 5 0RF Rx Instructions: 3 doses during day; last dose no later than 4 hr before bedtime No Action prenat.vits,surya,spx-ajwf-qtusb Tablet 1 tab PO DAILY ferrous sulfate [Feosol] 325 mg (65 mg iron) tablet 325 mg PO DAILY (DME) Breast Pump Supplies See Rx Instructions .Route .MEDSUPPLY Qty: 1 11RF Rx Instructions: Use as directed for multiple times daily PRN pumping. Pt gave on 04/09/2020. (DME) Double Electric Breast Pump See Rx Instructions .Route .MEDSUPPLY Qty: 1 0RF Rx Instructions: Breast pump and supplies desog-e.estradiol/e.estradiol [Kariva (28)] 0.15-0.02 mgx21 /0.01 mg x 5 tablet 1 tab PO DAILY Qty: 84 4RF Rx Instructions: Take once daily at same time every day. Referrals: Miscellaneous,Doctor, MD [Primary Care Provider] - Stand Alone Forms: Patient Portal/API
[2022-03-19] MEDS: diphenhydrAMINE 50 MG/ML VIAL 25 MG IV (02:41)
== END 2022-03-19 06:44 | disposition home or self-care (01) ==
PROVIDERS: Emergency Provider Emergency Medicine
DX: R11.2 Nausea with vomiting, unspecified (principal); R19.7 Diarrhea, unspecified; Z20.822 Contact with and (suspected) exposure to COVID-19
CPT/HCPCS: 0241U; 36415; 80053; 81003; 81025; 83690; 85025; 96361; 96374; 99284; J1200

== ENCOUNTER 2022-05-16 08:03 | Emergency (ER) | payer OTHER, SELFPAY ==
[2022-05-16 08:11] VITALS: BP 105/61; PULSE 67; RESP 16; TEMP 37; O2SAT 97; BMI 24.5
--- NOTE | 2022-05-16 08:20 | ED.NAVMDI ---
HPI - Nausea/Vomiting/Diarrhea General Chief complaint: Nausea/Vomiting/Diarrhea Stated complaint: N/V 8 weeks Time Seen by Provider: 05/16/22 08:07 Source: patient Mode of arrival: Ambulatory Limitations: no limitations History of Present Illness HPI Narrative: Patient is a 31-year-old female. have a she reports is a weeks EGA based on her last menstrual cycle. Has had hyperemesis during her prior to . Her 1st resulted in a spontaneous miscarriage. She states that the middle of April she would a positive test. She was seen here in the middle of March and had a negative test per that documentation. She most likely was very early on at that time based on her last menstrual cycle. She is been having nausea and vomiting at home since she found out she was . She does have Phenergan at home which she is been taking but this morning things were getting worse and she has been unable to tolerate anything by mouth. She is having some vaginal discharge and some cramping but no vaginal bleeding. No urinary symptoms. No fevers. No recent travel. No recent antibiotics. Related Data Home Medications Medication Instructions Recorded Confirmed ferrous sulfate 325 mg (65 mg 325 mg PO DAILY 01/01/20 05/22/20 iron) tablet (Feosol) prenat.vits,surya,xqf-iedp-tocvs 1 tab PO DAILY 01/01/20 05/22/20 Previous Rx's Medication Instructions Recorded Double Electric Breast Pump #1 ea 02/18/20 desogestrel-e.estradiol 0.15 1 tab PO DAILY Contraception #84 05/22/20 mg-0.02 mg(21)/e.estrad 0.01 mg(5) tabs tablet (Kariva (28)) Breast Pump Supplies #1 ea 07/15/20 promethazine 25 mg tablet 25 mg PO QID PRN nausea and 03/19/22 vomiting #5 tabs promethazine 25 mg rectal 25 mg CA Q4-6H PRN nausea and 05/16/22 suppository vomiting #12 ea promethazine 25 mg tablet 25 mg PO Q4-6H PRN nausea and 05/16/22 vomiting #10 tabs Allergies Allergy/AdvReac Type Severity Reaction Status Date / Time No Known Drug Allergies Allergy Verified 03/18/22 21:43 Review of Systems Constitutional Constitutional: Reports system reviewed and no additional complaints, except as documented Cardiovascular Cardiovascular: Reports system reviewed and no additional complaints, except as documented Gastrointestinal Gastrointestinal: Reports system reviewed and no additional complaints, except as documented Genitourinary Genitourinary: Reports system reviewed and no additional complaints, except as documented Integumentary/Breasts Skin/Breast: Reports system reviewed and no additional complaints, except as documented Neurologic Neurologic: Reports system reviewed and no additional complaints, except as documented Patient History Medical History Acid reflux Colitis (~11/2017) Eczema H/O being hospitalized (~11/2017) HPV (human papilloma virus) anogenital infection (~02/2018) Hyperemesis gravidarum Migraine Ovarian cyst SAB (spontaneous ) (~07/2017) Surgical History H/O colposcopy with cervical biopsy (~02/2018) H/O laparoscopy (~01/2017) H/O wisdom tooth extraction Family History Mother Endometriosis Father Ulcerative colitis Grandmother Cancer Grandfather Cancer Grandmother Leukemia Hemorrhage affecting 10th Grandfather Diabetes mellitus Altered cardiac tissue perfusion History of open heart surgery Tremors of nervous system Family/Other Cancer Family/Other Diverticulitis Family/Other Ovarian cancer Family/Other No problems noted. Social History marital status: household members: spouse lives independently: Yes pets and animals: No education level: high school occupational status: unemployed current occupational exposures/hazards: No special tacos needs: No Smoking Status: Never smoker second hand exposure: No (Not currently but growing up : yes) alcohol intake: former substance use type: does not use Smoking Status: Never smoker alcohol intake frequency: other Substance Use Type: does not use Exam Initial Vital Signs Initial Vital Signs: Vital Signs Temperature 98.6 F 05/16/22 08:11 Pulse Rate 67 05/16/22 08:11 Respiratory Rate 16 05/16/22 08:11 Blood Pressure 105/61 05/16/22 08:11 Pulse Oximetry 97 05/16/22 08:11 Oxygen Delivery Method Room Air 05/16/22 08:11 Const General: cooperative, comfortable and No ill appearing [facility] Head: normal to inspection and normocephalic Resp Effort & Inspection: normal respiratory effort Cardio Rate: regular rate GI Inspection: normal to inspection Skin General: no rashes or lesions noted Neuro General: patient alert and patient awake Course Orders Ordered: ED Orders 05/16/22 08:17 ABO RH Type Stat Basic Metabolic Panel Stat Complete Blood Count AUTO DIFF Stat HCG Quantitative /Beta subunit Stat Discontinued Medications Sodium Chloride (Normal Saline 0.9%) 1,000 mls @ 1,000 mls/hr IV BOLUS ONE Stop: 05/16/22 09:10 Last Infusion: 05/16/22 09:20 Dose: 0 mls/hr Documented By: Admin: 05/16/22 08:26 Dose: 1,000 mls/hr Documented By: AT Promethazine HCl (Promethazine 25 Mg Tablet) 25 mg PO NOW ONE Stop: 05/16/22 08:23 Last Admin: 05/16/22 08:26 Dose: 25 mg Documented By: AT Vital Signs Vital signs: Vital Signs - 8 hr 05/16/22 08:11 Temperature 98.6 F Pulse Rate 67 Respiratory Rate 16 Blood Pressure 105/61 Pulse Oximetry 97 Oxygen Delivery Method Room Air MDM - Nausea/Vomiting/Diarrhea Lab Data 05/16/22 08:17 05/16/22 08:17 Labs: Lab Results 05/16/22 05/16/22 05/16/22 Range/Units 08:17 08:17 08:17 WBC 6.0 (4.5-11.0) X10^3/uL RBC 4.31 (4.0-5.2) X10^6/uL Hgb 13.0 (12.0-16.0) g/dL Hct 38.7 (36-46) % MCV 89.8 (80-100) fL MCH 30.1 (26-34) PG MCHC 33.5 (30-36) % RDW 13.7 (11.6-14.8) % Plt Count 381 (150-400) X10^3/uL Neut % (Auto) 64.1 (50-75) % Lymph % (Auto) 27.7 (25-40) % Ford % (Auto) 7.0 (3-14) % Eos % (Auto) 0.7 L (2-4) % Baso % (Auto) 0.5 (0-2) % Neut # (Auto) 3800 (8518-8599) /uL Lymph # (Auto) 1700 (8677-7799) /uL Ford # (Auto) 400 (0-900) /uL Eos # (Auto) 0 (0-450) /uL Baso # (Auto) 0 (0-100) /uL Sodium 136 L (137-145) mmol/L Potassium 3.6 (3.4-5.1) mmol/L Chloride 101 (98-107) mmol/L Carbon Dioxide 27 (22-32) mmol/L BUN 8 (7-17) mg/dL Creatinine 0.53 (0.52-1.04) mg/dL Estimated GFR > 60 (>60) mL/min BUN/Creatinine Ratio 15.1 (6-22) Glucose 87 (70-100) mg/dL Calcium 8.9 (8.4-10.2) mg/dL HCG, Quant 34928 mIU/mL Blood Type A Positive MDM Narrative Medical decision making narrative: Patient is tolerating oral intake. She is having some cramping which improved with fluids. She is eating crackers. Still somewhat nauseous but not vomiting. We did discuss nausea medication during . She is had this issue in the past. She has a follow-up with her new OB on Monday of this week. She states the Phenergan has helped her in the past was sent home with a prescription for oral and also rectal Phenergan. She was given return precautions. She expressed understanding and agreement. Discharge Plan Departure Patient Disposition: Home Clinical Impression: Nausea and vomiting during Instructions: Nausea of (Alternative Therapy) Activity Restrictions/Additional Instructions: I do recommend that you try to increase your oral intake by drinking small amounts over longer periods of time. I do recommend a bland diet. Take the medication as needed and as directed. Keep all of your scheduled medical appointments. Return to the emergency department for new symptoms. Prescriptions: New promethazine 25 mg tablet 25 mg PO Q4-6H PRN (Reason: nausea and vomiting) Qty: 10 0RF promethazine 25 mg suppository 25 mg CA Q4-6H PRN (Reason: nausea and vomiting) Qty: 12 0RF No Action prenat.vits,surya,njp-blzd-bbreh Tablet 1 tab PO DAILY ferrous sulfate [Feosol] 325 mg (65 mg iron) tablet 325 mg PO DAILY (DME) Breast Pump Supplies See Rx Instructions .Route .MEDSUPPLY Qty: 1 11RF Rx Instructions: Use as directed for multiple times daily PRN pumping. Pt gave on 04/09/2020. (DME) Double Electric Breast Pump See Rx Instructions .Route .MEDSUPPLY Qty: 1 0RF Rx Instructions: Breast pump and supplies desog-e.estradiol/e.estradiol [Kariva (28)] 0.15-0.02 mgx21 /0.01 mg x 5 tablet 1 tab PO DAILY Qty: 84 4RF Rx Instructions: Take once daily at same time every day. promethazine 25 mg tablet 25 mg PO QID PRN (Reason: nausea and vomiting) Qty: 5 0RF Rx Instructions: 3 doses during day; last dose no later than 4 hr before bedtime Referrals: ProviderAstrid [Primary Care Provider] - Stand Alone Forms: Patient Portal/API
[2022-05-16 08:21] LABS: Add Manual Diff / Slide Review NO; Basophils Absolute Auto 0 /uL (0-100); Basophils Percent Auto 0.5 % (0-2); Eosinophils Absolute Auto 0 /uL (0-450); Eosinophils Percent Auto 0.7 % (2-4); Hematocrit 38.7 % (36-46); Lymphocytes Absolute Auto 1700 /uL (1100-4500); Lymphocytes Percent Auto 27.7 % (25-40); Mean Corpuscular HGB Conc 33.5 % (30-36); Mean Corpuscular Hemoglobin 30.1 PG (26-34); Mean Corpuscular Volume 89.8 fL (80-100); Monocytes Absolute Auto 400 /uL (0-900); Neutrophils Absolute Auto 3800 /uL (1500-7000); Neutrophils Percent Auto 64.1 % (50-75); Platelet Count 381 X10^3/uL (150-400); Red Blood Cell Count 4.31 X10^6/uL (4.0-5.2); Red Cell Distribution Width 13.7 % (11.6-14.8)
[2022-05-16] MEDS: SODIUM CHLORIDE 0.9% 1,000 ML 1000 ML IV (08:26)
[2022-05-16] MEDS: PROMETHAZINE 25 MG TABLET PO (08:26)
[2022-05-16 08:41] LABS: BUN Creatinine Ratio 15.1 (6-22); Blood Urea Nitrogen 8 mg/dL (7-17); Calcium 8.9 mg/dL (8.4-10.2); Carbon Dioxide 27 mmol/L (22-32); Chloride 101 mmol/L (98-107); Estimated Glomerular Filt Rate > 60 mL/min (>60); Glucose 87 mg/dL (70-100); HEMOLYSIS < 15 (0-50); Potassium 3.6 mmol/L (3.4-5.1); Sodium 136 mmol/L (137-145)
[2022-05-16 09:21] LABS: HCG Quantitative /Beta subunit 73335 mIU/mL
[2022-05-16 10:55] VITALS: BP 110/68; PULSE 74; RESP 16; O2SAT 97
== END 2022-05-16 10:56 | disposition home or self-care (01) ==
PROVIDERS: Emergency Provider Emergency Medicine
DX: O21.9 Vomiting of pregnancy, unspecified (principal); Z3A.01 Less than 8 weeks gestation of pregnancy
CPT/HCPCS: 36415; 80048; 84702; 85025; 86900; 86901; 96360; 99284

== ENCOUNTER → 2022-05-20 11:28 | Outpatient (CLI) | payer OTHER, SELFPAY ==
--- NOTE | 2022-05-20 11:29 | DI.US.S_ITS ---
PROCEDURE: US OB <= 14 WEEKS FETUS INDICATIONS: with inconclusive viability OUTSIDE/PRIOR DATING DATA: Last menstrual period (LMP): 03/18/2022. LMP-based estimated date of delivery (KENN): 12/23/2022. First dating scan (date and location): 05/20/2022. Estimated date of delivery (KENN) from first dating scan: Not applicable. TECHNIQUE: Real-time scanning was performed of the fetus and maternal pelvic organs, with image documentation. Endovaginal scanning was also performed to better visualize the fetus and maternal ovaries. COMPARISON: None. FINDINGS: Embryo: Intrauterine gestational sac with pole is identified. [place]-rump length measures 5 mm corresponding to 6 weeks 2 days. Gestational sac is irregular. pole is amorphous in appearance. Gestational age by clinical dates is 9 weeks 0 days. Heart rate: Not detected. Maternal organs: Ovaries unremarkable. IMPRESSION: Irregular gestational sac with amorphous pole corresponding to 6 weeks 2 days without heart tones. Clinical dates measure 9 weeks 0 days. Overall appearance is most suggestive of demise, given marked discrepancy of clinical versus ultrasound dates. Recommend correlation with beta HCG levels. We strive to produce accurate, complete, and clear reports of imaging services. To assist us in improving patient care, this report was composed using standard report templates and voice recognition software. Therefore, it may contain abnormal punctuation, insertions and/or omissions. Occasional wrong-word or sound-alike substitutions may occur. Though we review the report and make efforts to correct it, we do recommend that the report be read carefully in proper context to recognize any text inaccuracies. Dictated by: Lashell Abbott M.D. on 05/20/2022 at 16:47 Approved by: Lashell Abbott M.D. on 05/20/2022 at 16:49
== END ==
PROVIDERS: Referring Provider Advanced Practice Midwife; Visit Provider Advanced Practice Midwife
DX: O36.80X0 Pregnancy with inconclusive fetal viability, not applicable or unspecified (principal)
CPT/HCPCS: 76801; 76830

== ENCOUNTER 2022-07-21 21:09 | Emergency (ER) | payer OTHER, SELFPAY ==
[2022-07-21 21:13] VITALS: PULSE 80; RESP 16; TEMP 36.4; O2SAT 100; BMI 27.3
--- NOTE | 2022-07-22 01:00 | ED.LOWEXIN ---
HPI - Extremity Injury (Lower) General Chief Complaint: Extremity Injury, Lower Stated Complaint: Pulled thigh muscle Time Seen by Provider: 07/22/22 00:54 Source: patient Mode of arrival: Ambulatory History of Present Illness HPI Narrative: Patient here for right mid anterior thigh pain. This started yesterday, Monday with exercises, she did not stretch before doing them. Also later she was trying to enedina her young toddler and felt a pull in her thigh in the same area. Denies any other injuries. No leg or foot numbness tingling or weakness. Patient is still ambulatory. Denies any joint pain or injury. Related Data Home Medications Medication Instructions Recorded Confirmed ferrous sulfate 325 mg (65 mg 325 mg PO DAILY 01/01/20 05/22/20 iron) tablet (Feosol) prenat.vits,surya,kpk-euoj-ilnhn 1 tab PO DAILY 01/01/20 05/22/20 Previous Rx's Medication Instructions Recorded Double Electric Breast Pump #1 ea 02/18/20 desogestrel-e.estradiol 0.15 1 tab PO DAILY Contraception #84 05/22/20 mg-0.02 mg(21)/e.estrad 0.01 mg(5) tabs tablet (Kariva (28)) Breast Pump Supplies #1 ea 07/15/20 promethazine 25 mg tablet 25 mg PO QID PRN nausea and 03/19/22 vomiting #5 tabs promethazine 25 mg rectal 25 mg VT Q4-6H PRN nausea and 05/16/22 suppository vomiting #12 ea promethazine 25 mg tablet 25 mg PO Q4-6H PRN nausea and 05/16/22 vomiting #10 tabs baclofen 20 mg tablet 20 mg PO TID PRN pain (scale score 07/22/22 4-6) #20 tabs Allergies Allergy/AdvReac Type Severity Reaction Status Date / Time No Known Drug Allergies Allergy Verified 07/21/22 21:17 Review of Systems Review of Systems Narrative: GENERAL: negative chills, fatigue, malaise, fever, sweats. HEENT: negative sinus pain, ear pain, sore throat RESPIRATORY: negative dyspnea, cough CARDIOVASCULAR: negative chest pain, palpitations GASTROINTESTINAL: negative nausea, vomiting, abdominal pain : negative dysuria, frequency, hematuria MUSCULOSKELETAL: Positive muscle negative bony pain SKIN: negative rash, skin lesions NEUROLOGIC: negative weakness, numbness ROS Unobtainable: All systems reviewed & are unremarkable except as noted in HPI and below Patient History Medical History Acid reflux Colitis (~11/2017) Eczema H/O being hospitalized (~11/2017) HPV (human papilloma virus) anogenital infection (~02/2018) Hyperemesis gravidarum Migraine Ovarian cyst SAB (spontaneous ) (~07/2017) Surgical History H/O colposcopy with cervical biopsy (~02/2018) H/O laparoscopy (~01/2017) H/O wisdom tooth extraction Family History Mother Endometriosis Father Ulcerative colitis Grandmother Cancer Grandfather Cancer Grandmother Leukemia Hemorrhage affecting 10th Grandfather Diabetes mellitus Altered cardiac tissue perfusion History of open heart surgery Tremors of nervous system Family/Other Cancer Family/Other Diverticulitis Family/Other Ovarian cancer Family/Other No problems noted. Social History marital status: household members: spouse lives independently: Yes pets and animals: No education level: high school occupational status: unemployed current occupational exposures/hazards: No special tacos needs: No Smoking Status: Never smoker second hand exposure: No (Not currently but growing up : yes) alcohol intake: former substance use type: does not use Smoking Status: Never smoker alcohol intake frequency: other Substance Use Type: does not use Exam Narrative Exam Narrative: GENERAL: in no distress, not toxic not dyspneic HEAD: Normocephalic. EYES: Pupils equal round EXTREMITIES: No gross deformities. ER order entry technician, female, [place], at bedside to drum tender, pants were lower down. Bilateral thighs are grossly symmetric. There is point tenderness to anterior mid thigh. No bruising ecchymosis. Patient able to flex and extend at the hip and knees without difficulty. Patient able stand and walk has mild antalgic gait but no foot drop. Foot is warm soft and pink strong pedal pulse light touch intact to foot and toes. No signs of compartment syndrome. No pain out of proportion to exam. Has brisk cap refill to the toes NEURO: AOx4. SKIN: Warm and dry PSYCH: Not anxious, is cooperative Initial Vital Signs Initial Vital Signs: Vital Signs Temperature 97.6 F 07/21/22 21:13 Pulse Rate 80 07/21/22 21:13 Respiratory Rate 16 07/21/22 21:13 Pulse Oximetry 100 07/21/22 21:13 Oxygen Delivery Method Room Air 07/21/22 21:13 Course Vital Signs Vital signs: Vital Signs - 8 hr 07/21/22 21:13 Temperature 97.6 F Pulse Rate 80 Respiratory Rate 16 Pulse Oximetry 100 Oxygen Delivery Method Room Air MDM - Extremity Injury (Lower) Lab Data Labs: Point of Care Testing Test Results Negative MDM Narrative Medical decision making narrative: Patient here for allergic reaction to ibuprofen. She states she is taken ibuprofen in the past but not this large quantity. She states her primary care provider prescribed her ibuprofen 800 mg 3 times a day this past week for a heel spur. Patient developed upper and lower symmetric lip swelling but no tongue swelling yesterday. No trouble breathing. Took Benadryl did not seem to help as much. Upper lip has resolved. She did take 1 dose of ibuprofen today. She was not sure if she was allergic to it. Otherwise denies any other new products in her life. Patient in no respiratory distress. Patient feeling much better after medications given at triage. Patient desires discharge home. Lip swelling on the lower lip has decreased/improved. After history and exam no laboratory studies indicated other than test which is negative. No imaging indicated. No blood work. MDM CC: Right thigh pain Complicating co-morbidities: Patient breast-feeding Data collected from: Patient Medical records reviewed: No previous visits here recently for this complaint Differential considered: Includes but not limited to muscle tear muscle strain compartment syndrome Exam documented above, pertinent findings include: Reproducible point tenderness to the thigh Lab Test results independently reviewed as above. Pertinent findings: Urine test negative Treatments: None indicated now, patient is driving Re-evaluations: Reviewed physical findings with patient. Agrees no blood work or imaging indicated. Baclofen is prescribed She states she is however will pump and dump if needed. Return precautions reviewed with her. She desires discharge home. Work note provided. Discussion: Appropriate for discharge home. Exam is otherwise reassuring. No signs of compartment syndrome. Return precautions reviewed with patient, she desires discharge home. She does not want crutches or Osbaldo wrap. Diagnosis: Thigh muscle strain Discharge Plan Departure Patient Disposition: Home Clinical Impression: Muscle strain of right thigh Instructions: DI for Muscle Strain Activity Restrictions/Additional Instructions: Please do continue walking. Did not immobilize your leg as this may worsen muscle pain and cause cramping. Prescription for muscle relaxer as per sent to your pharmacy to continue at home. No driving or operating machinery when using this medication. See family doctor in a week for re-evaluation. Work note has been provided for you. Exam is reassuring, you likely strained your thigh muscle. Prescriptions: New baclofen 20 mg tablet 20 mg PO TID PRN (Reason: pain (scale score 4-6)) Qty: 20 0RF No Action prenat.vits,surya,obn-pxto-ibtwd Tablet 1 tab PO DAILY ferrous sulfate [Feosol] 325 mg (65 mg iron) tablet 325 mg PO DAILY (DME) Breast Pump Supplies See Rx Instructions .Route .MEDSUPPLY Qty: 1 11RF Rx Instructions: Use as directed for multiple times daily PRN pumping. Pt gave on 04/09/2020. (DME) Double Electric Breast Pump See Rx Instructions .Route .MEDSUPPLY Qty: 1 0RF Rx Instructions: Breast pump and supplies desog-e.estradiol/e.estradiol [Kariva (28)] 0.15-0.02 mgx21 /0.01 mg x 5 tablet 1 tab PO DAILY Qty: 84 4RF Rx Instructions: Take once daily at same time every day. promethazine 25 mg tablet 25 mg PO QID PRN (Reason: nausea and vomiting) Qty: 5 0RF Rx Instructions: 3 doses during day; last dose no later than 4 hr before bedtime promethazine 25 mg tablet 25 mg PO Q4-6H PRN (Reason: nausea and vomiting) Qty: 10 0RF promethazine 25 mg suppository 25 mg VT Q4-6H PRN (Reason: nausea and vomiting) Qty: 12 0RF Referrals: ProviderAstrid [Primary Care Provider] - Stand Alone Forms: Patient Portal/API, Work Release Note
== END 2022-07-22 01:12 | disposition home or self-care (01) ==
PROVIDERS: Emergency Provider Emergency Medicine
DX: S76.911A Strain of unspecified muscles, fascia and tendons at thigh level, right thigh, initial encounter (principal); Y93.B9 Activity, other involving muscle strengthening exercises
CPT/HCPCS: 81025; 99281

== ENCOUNTER 2022-08-10 10:04 | Emergency (ER) | payer OTHER, SELFPAY ==
[2022-08-10 10:06] VITALS: BP 113/66; PULSE 92; RESP 18; TEMP 33.7; O2SAT 99; BMI 27.1
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
[2022-08-10] MEDS: ACETAMINOPHEN 325 MG TABLET 975 MG PO (10:20)
[2022-08-10] MEDS: LIDOCAINE PATCH 1 EACH ADH..PATCH TOP (10:20)
[2022-08-10] MEDS: methocarbamoL 500 MG TABLET 750 MG PO (10:52)
[2022-08-10 11:04] VITALS: BP 122/70; PULSE 72; RESP 16; O2SAT 99
[2022-08-10 11:06] LABS: Bacteria Urine Many (>30); RBC Urine None Seen (0-5/HPF); Squamous Epithelial Cell Urine 5-10 /HPF (0-5/HPF); WBC Urine 1-5/HPF (0-5/HPF)
[2022-08-10 11:07] LABS: Culture Indicated Urine Specimen Cultured
== END 2022-08-10 11:07 | disposition home or self-care (01) ==
PROVIDERS: Emergency Provider Nurse Practitioner Critical Care Medicine
DX: S13.4XXA Sprain of ligaments of cervical spine, initial encounter (principal); M54.50 Low back pain, unspecified; V89.2XXA Person injured in unspecified motor-vehicle accident, traffic, initial encounter
CPT/HCPCS: 81003; 81015; 81025; 87086; 99283

== ENCOUNTER → 2022-10-05 09:41 | Outpatient (CLI) | payer OTHER, SELFPAY ==
--- NOTE | 2022-10-05 | DI.US.S_ITS ---
PROCEDURE: US OB <= 14 WEEKS FETUS INDICATIONS: VIABILITY AND DATING OUTSIDE/PRIOR DATING DATA: Last menstrual period (LMP): 07/23/2022. LMP-based estimated date of delivery (KENN): 04/29/2023. TECHNIQUE: Real-time scanning was performed of the fetus and maternal pelvic organs, with image documentation. Endovaginal scanning was also performed to better visualize the fetus and maternal ovaries. COMPARISON: None FINDINGS: Gestational sac appears irregular in morphology. Embryo: [place]-rump length of 0.5 centimeters corresponding to a gestational age of 6 weeks 2 days Heart rate: No cardiac activity identified. 1.8 centimeter perigestational hemorrhage present. Maternal organs: Left corpus luteum. IMPRESSION: Intrauterine of uncertain viability. An intrauterine embryo with a crown-rump length corresponding to a gestational age of 6 weeks 2 days is present. No cardiac activity is seen at this time, which can be normal in early . Recommend follow-up ultrasound in at least 7 days to assess for viability. We strive to produce accurate, complete, and clear reports of imaging services. To assist us in improving patient care, this report was composed using standard report templates and voice recognition software. Therefore, it may contain abnormal punctuation, insertions and/or omissions. Occasional wrong-word or sound-alike substitutions may occur. Though we review the report and make efforts to correct it, we do recommend that the report be read carefully in proper context to recognize any text inaccuracies. Dictated by: Tyson Grove M.D. on 10/05/2022 at 18:08 Approved by: Tyson Grove M.D. on 10/05/2022 at 18:13
== END ==
PROVIDERS: Referring Provider Advanced Practice Midwife; Visit Provider Advanced Practice Midwife
DX: O36.80X0 Pregnancy with inconclusive fetal viability, not applicable or unspecified (principal)
CPT/HCPCS: 76801

== ENCOUNTER → 2022-11-25 12:48 | Outpatient (CLI) | payer OTHER, SELFPAY ==
[2022-11-25 14:02] LABS: Free T4, Direct Thyroxine 1.34 ng/dL (0.78-2.19)
[2022-11-25 14:16] LABS: Thyroid Stimulating Hormone 0.786 uIU/mL (0.47-4.68)
[2022-11-30 20:07] LABS: Dilute Russell Viper Venom 34.6 sec (0.0-47.0); Lupus Reflex Interpretation Comment: (.); PTT-LA 35.1 sec (0.0-43.5)
[2022-12-06 17:26] LABS: Cardiolipin IgA Negative (.)
== END ==
PROVIDERS: Referring Provider Obstetrics & Gynecology; Visit Provider Obstetrics & Gynecology
DX: N96 Recurrent pregnancy loss (principal)
CPT/HCPCS: 36415; 81240; 81241; 83520; 84144; 84439; 84443; 85598; 85613; 86147; 86148

== ENCOUNTER → 2023-02-10 10:55 | Outpatient (CLI) | payer OTHER, SELFPAY | PROVIDERS: Referring Provider Obstetrics & Gynecology; Visit Provider Obstetrics & Gynecology | DX: N96 Recurrent pregnancy loss (principal) | CPT/HCPCS: 36415; 86147 ==

== ENCOUNTER 2023-08-06 10:27 | Emergency (ER) | payer OTHER, SELFPAY ==
[2023-08-06] VITALS (16 sets, daily range): BP systolic 92–106; BP diastolic 52–67; PULSE 97–119; RESP 14–30; TEMP 37.8; O2SAT 95–100; BMI 28.7
[2023-08-06] MEDS: SODIUM CHLORIDE 0.9% 1,000 ML 1000 ML IV (10:46)
[2023-08-06] MEDS: ONDANSETRON 4 MG/2 ML INJ IV (10:46)
[2023-08-06 10:49] LABS: Add Manual Diff / Slide Review NO; Basophils Absolute Auto 0 /uL (0-100); Basophils Percent Auto 0.2 % (0-2); Eosinophils Absolute Auto 0 /uL (0-450); Eosinophils Percent Auto 0.1 % (2-4); Hematocrit 37.1 % (36-46); Hemoglobin 12.6 g/dL (12.0-16.0); Lymphocytes Absolute Auto 700 /uL (1100-4500); Lymphocytes Percent Auto 4.9 % (25-40); Mean Corpuscular Hemoglobin 29.8 PG (26-34); Mean Corpuscular Volume 87.7 fL (80-100); Monocytes Absolute Auto 700 /uL (0-900); Monocytes Percent Auto 4.5 % (3-14); Neutrophils Absolute Auto 13800 /uL (1500-7000); Neutrophils Percent Auto 90.3 % (50-75); Platelet Count 316 X10^3/uL (150-400); Red Blood Cell Count 4.23 X10^6/uL (4.0-5.2); Red Cell Distribution Width 13.8 % (11.6-14.8); White Blood Cell Count 15.3 X10^3/uL (4.5-11.0)
[2023-08-06 11:00] LABS: Alanine Aminotransferase 13 IU/L (<35); Albumin 4.3 g/dL (3.5-5.0); Albumin Globulin Ratio 1.4 (1.0-2.8); Alkaline Phosphatase 57 U/L (38-126); Aspartate Aminotransferase 22 IU/L (14-36); BUN Creatinine Ratio 13.6 (6-22); Bilirubin Total 0.7 mg/dL (0.2-1.3); Blood Urea Nitrogen 8 mg/dL (7-17); Calcium 8.8 mg/dL (8.4-10.2); Carbon Dioxide 24 mmol/L (22-32); Chloride 104 mmol/L (98-107); Estimated Glomerular Filt Rate > 60 mL/min (>60); Glucose 92 mg/dL (70-100); HEMOLYSIS < 15 (0-50); Lipase 68 U/L (23-300); Potassium 3.7 mmol/L (3.4-5.1); Sodium 135 mmol/L (137-145); Total Protein 7.3 g/dL (6.3-8.2)
--- NOTE | 2023-08-06 11:00 | PC.NURSE ---
Pt reports nauseated last night. She woke up this morning vomiting bile. Took Po zofran @ 0700 and at 0900 took rectal phenergan with no releif in nausea/vomiting. Reports chills, body aches, headaches.
[2023-08-06 11:27] LABS: RBC Urine None Seen (0-5/HPF); Urine Volume 10mL (spun); WBC Urine 1-5/HPF (0-5/HPF)
[2023-08-06] MEDS: LORazepam 2 MG/ML INJ 0.5 MG IV ×2 (11:27→13:12)
[2023-08-06 11:28] LABS: Bacteria Urine Moderate (10-30); Culture Indicated Urine Specimen Cultured; Squamous Epithelial Cell Urine 10-30 /HPF (0-5/HPF)
[2023-08-06 12:03] LABS: Adenovirus Not Detected (Not Detect); B. parapertussis Not Detected (Not Detecte); Bordetella pertussis Not Detected (Not Detect); Chlamydophila pneumoniae Not Detected (Not Detect); Coronavirus 229E Not Detected (Not Detect); Coronavirus HKU1 Not Detected (Not Detect); Coronavirus NL 63 Not Detected (Not Detect); Coronavirus OC43 Not Detected (Not Detect); Human Metapneumovirus Not Detected (Not Detect); Human Rhinovirus/Enterovirus Not Detected (Not Detect); Influenza A Not Detected (Not Detect); Influenza B Not Detected (Not Detect); Mycoplasma pneumoniae Not Detected (Not Detect); Parainfluenza Virus 1 Not Detected (Not Detect); Parainfluenza Virus 2 Not Detected (Not Detect); Parainfluenza Virus 3 Not Detected (Not Detect); Parainfluenza Virus 4 Not Detected (Not Detect); Respiratory Syncytial Virus Not Detected (Not Detect); SARS- CoV-2 Not Detected (Not Detecte)
--- NOTE | 2023-08-06 12:04 | ED.NAVMDI ---
HPI - Nausea/Vomiting/Diarrhea General Chief complaint: Nausea/Vomiting/Diarrhea Stated complaint: NAUSEA VOMITTING BODY ACHES Time Seen by Provider: 08/06/23 10:40 Source: patient, RN notes reviewed and old records reviewed Mode of arrival: Ambulatory Limitations: no limitations History of Present Illness HPI Narrative: 32-year-old female A3 patient is 7 weeks 6 [address] has following with Dr. Feldman for OBGYN patient presents with complaint of generally feeling unwell for the past 24 hours waking up this morning with nausea and vomiting. She is felt chilled, she describes myalgias, she has had mild cough that has been nonproductive. No nasal congestion. States chest pain when she vomits but otherwise no chest pain no new shortness of breath. She states generally feels uncomfortable in her hips back and muscles. Denies any flank pain or specific abdominal pain. She states she has been a little bit constipated but passing gas regularly. She does note some urinary frequency and some dysuria which she appreciated today. Patient denies any new rash or skin changes. She notes she has a child at daycare who is currently sick at home. Patient states she started having increased nausea and vomiting today she tried her rectal Phenergan and oral Zofran without any improvement and presented for evaluation. Patient has had hyperemesis in the past and required infusions with prior , she has had 2 prior miscarriages in his currently taking progesterone, vitamin, omeprazole, Zofran and Phenergan PRN. She describes as having a dystonic type reaction to Reglan. No regular tobacco, alcohol or recreational drugs. Dr. Feldman is her obstetrical provider had a visit on 08/02/2023. Related Data Home Medications Medication Instructions Recorded Confirmed cetirizine 10 mg tablet (All Day 10 mg PO DAILY PRN 07/19/23 08/02/23 Allergy (cetirizine)) fluticasone propionate 50 1 spray intranasal DAILY 07/19/23 08/02/23 mcg/actuation nasal spray,suspension (Flonase Allergy Relief) Previous Rx's Medication Instructions Recorded progesterone micronized 200 mg 200 mg PO BEDTIME #30 caps 07/12/23 capsule (Prometrium) vit no.95-ferrous 1 tab PO DAILY #90 tabs 07/17/23 fumarate 28 mg-folic acid 800 mcg tablet ( Multivitamins) ondansetron 8 mg disintegrating 8 mg PO Q8H PRN nausea and 07/23/23 tablet vomiting #20 tabs promethazine 25 mg rectal 25 mg MI Q6H PRN nausea and 07/23/23 suppository vomiting #12 ea promethazine 25 mg tablet 25 mg PO TID PRN nausea and 07/23/23 vomiting #30 tabs omeprazole 40 mg capsule,delayed 40 mg PO DAILY #90 caps 07/24/23 release cephalexin 500 mg capsule 500 mg PO BID 5 days #10 caps 08/06/23 metoclopramide HCl 10 mg tablet 10 mg PO Q6H PRN nausea and 08/06/23 (Reglan) vomiting #7 tabs Allergies Allergy/AdvReac Type Severity Reaction Status Date / Time almond Allergy Intermediate ITCHING Verified 08/06/23 10:43 Review of Systems Review of Systems ROS Unobtainable: All systems reviewed & are unremarkable except as noted in HPI and below Patient History Medical History Endometrial hyperplasia Eczema H/O being hospitalized (~11/2017) Acid reflux HPV (human papilloma virus) anogenital infection (~02/2018) Colitis (~11/2017) Ovarian cyst SAB (spontaneous ) (~07/2017) Hyperemesis gravidarum Migraine Surgical History H/O wisdom tooth extraction H/O colposcopy with cervical biopsy (~02/2018) H/O laparoscopy (~01/2017) Family History Mother Endometriosis Father Ulcerative colitis Grandmother Cancer Grandfather Lung cancer Grandmother Leukemia Hemorrhage affecting 10th Grandfather Diabetes mellitus Altered cardiac tissue perfusion History of open heart surgery Tremors of nervous system Aunt Ovarian mass Uncle Diverticulitis Family/Other Ovarian cancer Social History marital status: number of children: 1 household members: spouse and children lives independently: Yes caregiver/support person: Yes housing: [facility] pets and animals: No education level: college (some college) occupational status: employed (active duty) current occupational exposures/hazards: No special tacos needs: No travel history: over 6 months ago seatbelt use: always helmet use: No water heater temp set < 120 deg: Yes working smoke detector in home: Yes fire extinguisher in home: Yes carbon monox detector in home: Yes firearms in home: No do you feel safe at home: Yes Smoking Status: Never smoker second hand exposure: No (Not currently but growing up : yes) alcohol intake: former substance use type: does not use during the past year weight has: remained stable well-balanced diet: about half the time daily servings fruits/ve-4 caffeine: Yes (minimal when ) Type(s) of exercise: walking, bicycling and running Smoking Status: Never smoker alcohol intake frequency: other Substance Use Type: does not use Exam Narrative Exam Narrative: GENERAL: Alert and oriented x three, female in mild distress HEENT: Head normocephalic, atraumatic, EOMI, pupils reactive,, no nasal congestion face symmetric, moist mucous membranes NECK: Supple, full range of motion CARDIOVASCULAR: Slightly tachycardic but regular rate and rhythm without murmurs, rubs or gallops. No edema bilateral lower extremities. RESPIRATORY: Breath sounds equal bilaterally, no wheezes rales or rhonchi. No tachypnea or accessory muscle use. ABDOMEN: Soft, nontender. Normoactive bowel sounds all 4 quadrants. No guarding or rebound, rigidity, no mass : No CVA tenderness bilaterally. EXTREMITIES: Normal range of motion, no clubbing or edema. Neurovascularly intact NEUROLOGICAL: Cranial nerves II through XII grossly intact. Moving all extremities SKIN: Warm, dry, no petechiae, no rashes or lesions. Initial Vital Signs Initial Vital Signs: Vital Signs Temperature 100.1 F H 08/06/23 10:35 Pulse Rate 116 H 08/06/23 10:35 Respiratory Rate 18 08/06/23 10:35 Blood Pressure 105/63 08/06/23 10:35 Pulse Oximetry 98 08/06/23 10:35 Oxygen Delivery Method Room Air 08/06/23 10:35 Course Orders Ordered: ED Orders 08/06/23 10:40 CBC Auto Diff [Complete Blood Count AUTO DIFF] Stat CMP [Comprehensive Metabolic Panel] Stat Lipase Stat 08/06/23 10:44 Lactate (Lactic Acid) Stat Procalcitonin Stat 08/06/23 10:47 EKG-12 Lead Stat 08/06/23 10:55 Respiratory Panel (Film Array) Stat 08/06/23 11:02 Urine Culture Stat Urine Microscopic Stat 08/06/23 12:10 Blood Culture Stat 08/06/23 12:23 US OB >= 14 weeks Fetus Stat US abdomen complete Stat Discontinued Medications Sodium Chloride (Normal Saline 0.9%) 1,000 mls @ 1,000 mls/hr IV BOLUS ONE Stop: 08/06/23 11:39 Last Infusion: 08/06/23 11:54 Dose: Infused Documented By: Admin: 08/06/23 10:46 Dose: 1,000 mls/hr Documented By: Ceftriaxone Sodium 1,000 mg/ (Sodium Chloride) 100 mls @ 200 mls/hr IV NOW ONE Stop: 08/06/23 11:59 Last Infusion: 08/06/23 13:13 Dose: Infused Documented By: Admin: 08/06/23 12:31 Dose: 200 mls/hr Documented By: LIZZETH Acetaminophen (Ofirmev) 1,000 mg in 100 mls @ 400 mls/hr IV NOW ONE Stop: 08/06/23 12:13 Last Infusion: 08/06/23 12:25 Dose: Infused Documented By: Admin: 08/06/23 12:10 Dose: 400 mls/hr Documented By: LIZZETH Sodium Chloride (Normal Saline 0.9%) 2,136.42 mls @ 712.14 mls/hr 30 ml/kg infuse over 3 hr (2136.42 ml) IV NOW ONE Stop: 08/06/23 14:59 Last Infusion: 08/06/23 14:35 Dose: Infused Documented By: Admin: 08/06/23 12:15 Dose: 712.14 mls/hr Documented By: SPF Lorazepam (Lorazepam 2 Mg/Ml Inj) 0.5 mg IV NOW ONE Stop: 08/06/23 11:22 Last Admin: 08/06/23 11:27 Dose: 0.5 mg Documented By: SPF Lorazepam (Lorazepam 2 Mg/Ml Inj) 0.5 mg IV NOW ONE Stop: 08/06/23 12:24 Last Admin: 08/06/23 13:12 Dose: 0.5 mg Documented By: AJ Ondansetron HCl (Ondansetron 4 Mg/2 Ml Inj) 4 mg IV NOW ONE Stop: 08/06/23 10:41 Last Admin: 08/06/23 10:46 Dose: 4 mg Documented By: Vital Signs Vital signs: Vital Signs - 8 hr 08/06/23 11:27 08/06/23 11:27 08/06/23 11:30 Pulse Rate 105 H 105 H Respiratory Rate 20 16 Blood Pressure 100/66 Pulse Oximetry 100 100 Oxygen Delivery Method Room Air 08/06/23 11:30 08/06/23 11:45 08/06/23 12:00 Pulse Rate 102 H Respiratory Rate 21 Blood Pressure 102/67 92/52 L Pulse Oximetry 98 Oxygen Delivery Method Room Air 08/06/23 12:00 08/06/23 12:15 08/06/23 12:30 Pulse Rate 104 H 114 H Respiratory Rate 24 30 H Blood Pressure 95/59 L Pulse Oximetry 98 99 Oxygen Delivery Method 08/06/23 12:30 08/06/23 12:44 08/06/23 12:44 Pulse Rate 104 H 102 H Respiratory Rate 16 14 Blood Pressure 106/64 Pulse Oximetry 97 98 Oxygen Delivery Method Room Air 08/06/23 12:45 08/06/23 13:00 08/06/23 13:00 Pulse Rate 102 H 105 H Respiratory Rate 18 16 Blood Pressure 106/57 L Pulse Oximetry 96 96 Oxygen Delivery Method 08/06/23 13:30 08/06/23 13:45 08/06/23 13:59 Pulse Rate 101 H 99 H Respiratory Rate 21 Blood Pressure 100/58 L Pulse Oximetry 95 95 Oxygen Delivery Method 08/06/23 13:59 08/06/23 14:00 08/06/23 14:00 Pulse Rate 98 H 97 H Respiratory Rate 22 Blood Pressure 101/58 L Pulse Oximetry 98 98 Oxygen Delivery Method Room Air MDM - Nausea/Vomiting/Diarrhea Lab Data 08/06/23 10:40 08/06/23 10:40 Labs: Lab Results 08/06/23 08/06/23 08/06/23 Range/Units 10:40 10:44 10:55 WBC 15.3 H (4.5-11.0) X10^3/uL RBC 4.23 (4.0-5.2) X10^6/uL Hgb 12.6 (12.0-16.0) g/dL Hct 37.1 (36-46) % MCV 87.7 (80-100) fL MCH 29.8 (26-34) PG MCHC 34.0 (30-36) % RDW 13.8 (11.6-14.8) % Plt Count 316 (150-400) X10^3/uL Neut % (Auto) 90.3 H (50-75) % Lymph % (Auto) 4.9 L (25-40) % [place] % (Auto) 4.5 (3-14) % Eos % (Auto) 0.1 L (2-4) % Baso % (Auto) 0.2 (0-2) % Neut # (Auto) 97622 H (3190-9112) /uL Lymph # (Auto) 700 L (1318-1564) /uL [place] # (Auto) 700 (0-900) /uL Eos # (Auto) 0 (0-450) /uL Baso # (Auto) 0 (0-100) /uL Sodium 135 L (137-145) mmol/L Potassium 3.7 (3.4-5.1) mmol/L Chloride 104 (98-107) mmol/L Carbon Dioxide 24 (22-32) mmol/L BUN 8 (7-17) mg/dL Creatinine 0.59 (0.52-1.04) mg/dL Estimated GFR > 60 (>60) mL/min BUN/Creatinine Ratio 13.6 (6-22) Glucose 92 (70-100) mg/dL Lactate 1.1 (0.7-2.1) mmol/L Calcium 8.8 (8.4-10.2) mg/dL Total Bilirubin 0.7 (0.2-1.3) mg/dL AST 22 (14-36) IU/L ALT 13 (<35) IU/L Alkaline Phosphatase 57 (38-126) U/L Total Protein 7.3 (6.3-8.2) g/dL Albumin 4.3 (3.5-5.0) g/dL Globulin 3.0 (1.7-4.1) g/dL Albumin/Globulin Ratio 1.4 (1.0-2.8) Lipase 68 (23-300) U/L Procalcitonin 0.045 (<0.5) ng/mL Urine RBC (0-5/HPF) Urine WBC (0-5/HPF) Ur Squamous Epith Cells (0-5/HPF) Urine Bacteria (None) Ur Culture Indicated? Vol Urine Centrifuged Chlamy pneumoniae PCR Not detected (Not Detect) Adenovirus (PCR) Not detected (Not Detect) B.parapertussis DNA PCR Not detected (Not Detecte) Coronavirus OC43 (PCR) Not detected (Not Detect) Coronavirus HKU1 (PCR) Not detected (Not Detect) Coronavirus 229E (PCR) Not detected (Not Detect) SARS-CoV-2 (PCR) Not detected (Not Detecte) Coronavirus NL63 (PCR) Not detected (Not Detect) Human Metapneumovir PCR Not detected (Not Detect) Influenza Type A (PCR) Not detected (Not Detect) Influenza Type B (PCR) Not detected (Not Detect) M. pneumoniae (PCR) Not detected (Not Detect) Parainfluenza 1 (PCR) Not detected (Not Detect) Parainfluenza 2 (PCR) Not detected (Not Detect) Parainfluenza 3 (PCR) Not detected (Not Detect) Parainfluenza 4 (PCR) Not detected (Not Detect) RSV (PCR) Not detected (Not Detect) Entero/Rhino (PCR) Not detected (Not Detect) 08/06/23 Range/Units 11:02 WBC (4.5-11.0) X10^3/uL RBC (4.0-5.2) X10^6/uL Hgb (12.0-16.0) g/dL Hct (36-46) % MCV (80-100) fL MCH (26-34) PG MCHC (30-36) % RDW (11.6-14.8) % Plt Count (150-400) X10^3/uL Neut % (Auto) (50-75) % Lymph % (Auto) (25-40) % [place]ickman % (Auto) (3-14) % Eos % (Auto) (2-4) % Baso % (Auto) (0-2) % Neut # (Auto) (4623-3654) /uL Lymph # (Auto) (2044-8940) /uL [place]ickman # (Auto) (0-900) /uL Eos # (Auto) (0-450) /uL Baso # (Auto) (0-100) /uL Sodium (137-145) mmol/L Potassium (3.4-5.1) mmol/L Chloride (98-107) mmol/L Carbon Dioxide (22-32) mmol/L BUN (7-17) mg/dL Creatinine (0.52-1.04) mg/dL Estimated GFR (>60) mL/min BUN/Creatinine Ratio (6-22) Glucose (70-100) mg/dL Lactate (0.7-2.1) mmol/L Calcium (8.4-10.2) mg/dL Total Bilirubin (0.2-1.3) mg/dL AST (14-36) IU/L ALT (<35) IU/L Alkaline Phosphatase (38-126) U/L Total Protein (6.3-8.2) g/dL Albumin (3.5-5.0) g/dL Globulin (1.7-4.1) g/dL Albumin/Globulin Ratio (1.0-2.8) Lipase (23-300) U/L Procalcitonin (<0.5) ng/mL Urine RBC None seen (0-5/HPF) Urine WBC 1-5/hpf (0-5/HPF) Ur Squamous Epith Cells 10-30 /hpf H (0-5/HPF) Urine Bacteria Moderate (10-30) H (None) Ur Culture Indicated? Specimen cultured Vol Urine Centrifuged 10ml (spun) Chlamy pneumoniae PCR (Not Detect) Adenovirus (PCR) (Not Detect) B.parapertussis DNA PCR (Not Detecte) Coronavirus OC43 (PCR) (Not Detect) Coronavirus HKU1 (PCR) (Not Detect) Coronavirus 229E (PCR) (Not Detect) SARS-CoV-2 (PCR) (Not Detecte) Coronavirus NL63 (PCR) (Not Detect) Human Metapneumovir PCR (Not Detect) Influenza Type A (PCR) (Not Detect) Influenza Type B (PCR) (Not Detect) M. pneumoniae (PCR) (Not Detect) Parainfluenza 1 (PCR) (Not Detect) Parainfluenza 2 (PCR) (Not Detect) Parainfluenza 3 (PCR) (Not Detect) Parainfluenza 4 (PCR) (Not Detect) RSV (PCR) (Not Detect) Entero/Rhino (PCR) (Not Detect) Urine Dip Bedside Urine Glucose Negative Bedside Urine Bilirubin - Negative Bedside Urine Ketone +/- 5 Urine Specific [place] 1.010 Bedside Urine Occult Blood - Negative Bedside Urine pH 8.5 Bedside Urine Protein +/- 15 Bedside Urine Urobilinogen - Negative Bedside Urine Nitrite - Negative Bedside Urine Leukocytes - Negative Esterase ECG Data Attestation: I personally reviewed and interpreted this ECG as follows: Prior ECG tracings: not available for review Interpretation: Sinus tachycardia rate of 106 MI 120 QRS 82 QTC 464, no acute ST elevation or depression. No priors for comparison. MDM Narrative Medical decision making narrative: 32-year-old female who presents with history of hyperemesis gravidarum, recent symptoms consistent with possible viral illness she does have known exposure with her child who is in daycare and currently sick. Patient's labs show white count of 15.3 hemoglobin of 12 platelets of 316, creatinine 0.59 with BUN 8, glucose 92, sodium 135 potassium 3.7, chloride 104 with a CO2 24, negative LFTs Patient with persistently tachycardic even after a L of fluid so had lactate, procalcitonin are negative. Blood cultures obtained and pending Respiratory panel was negative she has had recent exposures with family. UA negative for nitrates and leuks, 10-30 squamous, moderate bacteria 1-5 white cells no red cells. Urine culture is pending Patient had abdominal as well as OB ultrasound. Abdominal ultrasound shows no acute changes, OB ultrasound shows live intrauterine heart rate 180 beats based on early dates there was some morphologic change to the head and recommend follow-up at 20 weeks to assess for abnormalities. Patient received a L of still slightly tachycardic so given a full 30 cc/kilos bolus. She is slightly febrile here in the department 100.2 F was given Tylenol, had minimal improvement with Zofran had had Phenergan at 9:00 a.m. so was given a dose Ativan was still nauseated but no longer having dry heaves. Was given additional dose which was helpful. Spoke with Dr. Feldman, if patient can tolerate can try Reglan p.o. versus Unisom/P 6. She has a follow up appointment on the and Dr. Feldman had noticed changes as well on ultrasound. Spoke with patient she feels comfortable returning home discussed options for antinausea medication. She has never had Reglan p.o. but did have little bit of dystonic type reaction with IV. Discussed can attempt this versus Unisom/vitamin B6. Patient prefers to try the Reglan instead. Discharge Plan Departure Patient Disposition: Home Clinical Impression: Vomiting affecting , UTI (urinary tract infection) Activity Restrictions/Additional Instructions: Follow up with Dr. Feldman, call the office to see if they would like you to keep your August 15 appointment or to be seen sooner. I did speak with Dr. Feldman today, we reviewed all your findings from today she does have plans to repeat your ultrasound. Take 1000 mg of Tylenol every 6 hours as needed for pain. There is possible UTI, take antibiotics as prescribed. You can start your next dose tomorrow. Continue with Zofran and Phenergan as prescribed, you can take Reglan instead of Zofran or Phenergan. Take 1 tablet every 6 hours as needed for nausea/vomiting. This medication can sometimes cause a dystonic reaction if you develop symptoms you can take 25 mg of Benadryl. Take oral antibiotics until completed. Prescription sent to [facility] in [place]. Please return for fevers, worsening abdominal back or flank pain, persistent vomiting, lightheadedness or passing out, new vaginal bleeding or other new or concerning changes. Prescriptions: New metoclopramide HCl [Reglan] 10 mg tablet 10 mg PO Q6H PRN (Reason: nausea and vomiting) Qty: 7 0RF cephalexin 500 mg capsule 500 mg PO BID 5 Days Qty: 10 0RF No Action progesterone micronized [Prometrium] 200 mg capsule 200 mg PO BEDTIME Qty: 30 3RF PNV cmb#95-ferrous fumarate-FA [ Multivitamins] 28 mg iron- 800 mcg tablet 1 tab PO DAILY Qty: 90 3RF promethazine 25 mg tablet 25 mg PO TID PRN (Reason: nausea and vomiting) Qty: 30 12RF promethazine 25 mg suppository 25 mg MI Q6H PRN (Reason: nausea and vomiting) Qty: 12 12RF ondansetron 8 mg tablet,disintegrating 8 mg PO Q8H PRN (Reason: nausea and vomiting) Qty: 20 12RF omeprazole 40 mg capsule,delayed release(DR/EC) 40 mg PO DAILY Qty: 90 0RF fluticasone propionate [Flonase Allergy Relief] 50 mcg/actuation spray,suspension 1 spray intranasal DAILY Rx Instructions: administer into each nostril cetirizine [All Day Allergy (cetirizine)] 10 mg tablet 10 mg PO DAILY PRN Referrals: [facility] [Primary Care Provider] - Stand Alone Forms: Patient Portal/API
[2023-08-06] MEDS: ACETAMINOPHEN IV 1,000 MG/100 ML VIAL 400 MG IV (12:10)
[2023-08-06 12:14] LABS: Lactate (Lactic Acid) 1.1 mmol/L (0.7-2.1)
[2023-08-06] MEDS: SODIUM CHLORIDE 0.9% 712.14 ML IV (12:15)
--- NOTE | 2023-08-06 12:23 | DI.US.S_ITS ---
PROCEDURE: US ABDOMEN COMPLETE INDICATIONS: n/v/chills, + /abd pain TECHNIQUE: Real-time scanning was performed of the abdominal and retroperitoneal organs, with image documentation. COMPARISON: None. FINDINGS: Liver: Liver is normal in size and homogeneous in echotexture. Gallbladder: Normal appearance of the gallbladder. Gallbladder wall measures 2 millimeters. No stones or pericholecystic fluid. Biliary ducts: Intrahepatic bile ducts are non-dilated. Extrahepatic bile duct caliber measures 3 mm. Normal is 6-7 mm or less in diameter, or 10 mm or less post-cholecystectomy. Pancreas: Visualized portions of the pancreas are sonographically normal. Spleen: Spleen is normal in size and homogeneous in echotexture. Kidneys: Kidneys are normal in size and echotexture. Right kidney measures 10.5 cm long; left kidney measures 10.4 cm long. No hydronephrosis or nephrolithiasis. No solid masses. Aorta: Visualized aorta is normal in caliber at less than 3 cm. Iliacs: Proximal common iliac arteries are normal in caliber at less than 2.5 cm. IVC: IVC is obscured by bowel gas. Miscellaneous: No free abdominal fluid. IMPRESSION: Normal abdominal ultrasound. Dictated by: Bryant Toussaint M.D. on 08/06/2023 at 12:42 Approved by: Bryant Toussaint M.D. on 08/06/2023 at 12:48
--- NOTE | 2023-08-06 12:23 | DI.US.S_ITS ---
PROCEDURE: US OB >= 14 WEEKS FETUS INDICATIONS: n/v/abd pain OUTSIDE/PRIOR DATING DATA: Last menstrual period (LMP): 06/13/2023. LMP-based estimated date of delivery (KENN): 03/19/2024. First dating scan (date and location): 08/02/2023. Estimated date of delivery (KENN) from first dating scan: 03/19/2024. The calculations are made using the ultrasound KENN of 03/19/2024. TECHNIQUE: Real-time scanning was performed of the fetus, with image documentation and biometric measurements. Endovaginal scanning: Performed COMPARISON: [facility], [place], US OB >= 14 WEEKS FETUS, 04/07/2020, 12:18. FINDINGS: General: Gestational sac is identified within the uterus with yolk sac measuring 4 millimeters. heart rate measures 180 beats per minute. [place]-rump length measures 1.4 centimeters consistent with gestational age of 7 weeks 5 days. Cystic appearance of the head measuring slightly elongated gated at 0.6 x 0.4 x 0.4 centimeters. Corpus luteal cyst in the right adnexa. Left ovary is not identified. IMPRESSION: Live intrauterine with a heart rate of 180 beats per minute. Given the early dates anatomy is difficult to determine. The morphological appearance of the head is indeterminate. Recommend follow-up ultrasound imaging at 20 weeks to assess for anatomic abnormalities. We strive to produce accurate, complete, and clear reports of imaging services. To assist us in improving patient care, this report was composed using standard report templates and voice recognition software. Therefore, it may contain abnormal punctuation, insertions and/or omissions. Occasional wrong-word or sound-alike substitutions may occur. Though we review the report and make efforts to correct it, we do recommend that the report be read carefully in proper context to recognize any text inaccuracies. Dictated by: Bryant Toussaint M.D. on 08/06/2023 at 12:29 Approved by: Bryant Toussaint M.D. on 08/06/2023 at 12:37
[2023-08-06 12:31] LABS: Procalcitonin 0.045 ng/mL (<0.5)
[2023-08-06] MEDS: cefTRIAXone 1,000 MG in SODIUM CHLORIDE 0.9% 100 ML 200 MG IV (12:31)
--- NOTE | 2023-08-06 14:37 | PC.NURSE ---
Pt received 1L fluid bolus prior to sepsis fluid order. Pt received total of 2,137cc IV fluid total instead of 3,137cc ordered. Provider aware and okayed.
== END 2023-08-06 14:37 | disposition home or self-care (01) ==
PROVIDERS: Emergency Provider Emergency Medicine
DX: O21.9 Vomiting of pregnancy, unspecified (principal); R07.9 Chest pain, unspecified; R00.0 Tachycardia, unspecified; Z3A.01 Less than 8 weeks gestation of pregnancy; Z20.822 Contact with and (suspected) exposure to COVID-19
CPT/HCPCS: 36415; 76700; 76811; 80053; 81003; 81015; 83605; 83690; 84145; 85025; 87040; 87086; 87633; 93005; 96361; 96365; 96375; 96376; 99284; J0136; J0696; J2060; J2405

== ENCOUNTER 2023-08-08 10:27 | Emergency (ER) | payer OTHER, SELFPAY ==
[2023-08-08 11:26] VITALS: BP 106/60; PULSE 99; RESP 16; TEMP 36.5; O2SAT 99; BMI 28.7
[2023-08-08 12:42] LABS: Strep Grp A by PCR Rapid Positive (Negative)
--- NOTE | 2023-08-08 14:01 | ED.URI ---
HPI - URI/Sore Throat General Chief Complaint: Upper Respiratory Symptoms Stated Complaint: neck pain swelling nausea 8 weeks Time Seen by Provider: 08/08/23 13:26 Source: patient Mode of arrival: Ambulatory History of Present Illness HPI Narrative: Patient is a 32-year-old female A3 currently 8 weeks presenting today with sore throat. She was seen evaluated here on August 05 with nausea vomiting. She would full workup including ultrasound It was presumed that she had a UTI started on antibiotics but urine culture from the shows lactobacillus. She now presents today with significant sore throat and cervical lymphadenopathy. She denies any abdominal pain vaginal bleeding she is persistent nausea but overall feeling a bit better. It hurts to swallow no significant cough. Related Data Home Medications Medication Instructions Recorded Confirmed cetirizine 10 mg tablet (All Day 10 mg PO DAILY PRN 07/19/23 08/02/23 Allergy (cetirizine)) fluticasone propionate 50 1 spray intranasal DAILY 07/19/23 08/02/23 mcg/actuation nasal spray,suspension (Flonase Allergy Relief) Previous Rx's Medication Instructions Recorded progesterone micronized 200 mg 200 mg PO BEDTIME #30 caps 07/12/23 capsule (Prometrium) vit no.95-ferrous 1 tab PO DAILY #90 tabs 07/17/23 fumarate 28 mg-folic acid 800 mcg tablet ( Multivitamins) ondansetron 8 mg disintegrating 8 mg PO Q8H PRN nausea and 07/23/23 tablet vomiting #20 tabs promethazine 25 mg rectal 25 mg NV Q6H PRN nausea and 07/23/23 suppository vomiting #12 ea promethazine 25 mg tablet 25 mg PO TID PRN nausea and 07/23/23 vomiting #30 tabs omeprazole 40 mg capsule,delayed 40 mg PO DAILY #90 caps 07/24/23 release cephalexin 500 mg capsule 500 mg PO BID 5 days #10 caps 08/06/23 metoclopramide HCl 10 mg tablet 10 mg PO Q6H PRN nausea and 08/06/23 (Reglan) vomiting #7 tabs amoxicillin 500 mg capsule 500 mg PO TID #30 caps 08/08/23 Allergies Allergy/AdvReac Type Severity Reaction Status Date / Time almond Allergy Intermediate ITCHING Verified 08/08/23 11:32 Patient History Medical History Endometrial hyperplasia Eczema H/O being hospitalized (~11/2017) Acid reflux HPV (human papilloma virus) anogenital infection (~02/2018) Colitis (~11/2017) Ovarian cyst SAB (spontaneous ) (~07/2017) Hyperemesis gravidarum Migraine Surgical History H/O wisdom tooth extraction H/O colposcopy with cervical biopsy (~02/2018) H/O laparoscopy (~01/2017) Family History Mother Endometriosis Father Ulcerative colitis Grandmother Cancer Grandfather Lung cancer Grandmother Leukemia Hemorrhage affecting 10th Grandfather Diabetes mellitus Altered cardiac tissue perfusion History of open heart surgery Tremors of nervous system Aunt Ovarian mass Uncle Diverticulitis Family/Other Ovarian cancer Social History marital status: number of children: 1 household members: spouse and children lives independently: Yes caregiver/support person: Yes [facility] pets and animals: No education level: college (some college) occupational status: employed (active duty) current occupational exposures/hazards: No special tacos needs: No travel history: over 6 months ago seatbelt use: always helmet use: No water heater temp set < 120 deg: Yes working smoke detector in home: Yes fire extinguisher in home: Yes carbon monox detector in home: Yes firearms in home: No do you feel safe at home: Yes Smoking Status: Never smoker second hand exposure: No (Not currently but growing up : yes) alcohol intake: former substance use type: does not use during the past year weight has: remained stable well-balanced diet: about half the time daily servings fruits/ve-4 caffeine: Yes (minimal when ) Type(s) of exercise: walking, bicycling and running Smoking Status: Never smoker alcohol intake frequency: other Substance Use Type: does not use Exam Initial Vital Signs Initial Vital Signs: Vital Signs Temperature 97.7 F 08/08/23 11:26 Pulse Rate 99 H 08/08/23 11:26 Respiratory Rate 16 08/08/23 11:26 Blood Pressure 106/60 08/08/23 11:26 Pulse Oximetry 99 08/08/23 11:26 Oxygen Delivery Method Room Air 08/08/23 11:26 GENERAL: Alert well-appearing 32-year-old female HEENT: Head atraumatic,EOMI, pupils reactive, face symmetric, moist mucous membranes PHARYNX: Tonsillar exudate no uvula swelling or deviation CARDIOVASCULAR: Regular rate and rhythm without murmurs, rubs or gallops. RESPIRATORY: Breath sounds equal bilaterally, no wheezes rales or rhonchi. ABDOMEN: Soft, nontender. Normoactive bowel sounds all 4 quadrants. No guarding or rebound. EXTREMITIES: Normal range of motion, no clubbing or edema. Neurovascularly intact NEUROLOGICAL: Alert and oriented x4.Normal gait and speech. SKIN: Warm, dry, no laceration, no petechiae, no rashes or lesions. Course Orders Ordered: ED Orders 08/08/23 11:34 Strep Grp A by PCR Rapid Stat Vital Signs Vital signs: Vital Signs - 8 hr 08/08/23 11:26 08/08/23 14:25 Temperature 97.7 F Pulse Rate 99 H 96 H Respiratory Rate 16 18 Blood Pressure 106/60 Pulse Oximetry 99 99 Oxygen Delivery Method Room Air Room Air MDM - URI/Sore Throat Lab Data Labs: Lab Results 08/08/23 Range/Units 11:34 Group A Strep (PCR) Positive H (Negative) Urine Dip Bedside Urine Glucose Negative Bedside Urine Bilirubin - Negative Bedside Urine Ketone - Negative Urine Specific [place] 1.010 Bedside Urine Occult Blood - Negative Bedside Urine pH 6.0 Bedside Urine Protein - Negative Bedside Urine Urobilinogen - Negative Bedside Urine Nitrite - Negative Bedside Urine Leukocytes - Negative Esterase [facility] Narrative Medical decision making narrative: 32-year-old female presents today with sore throat she is positive for strep. No evidence of retropharyngeal or peritonsillar abscess. She is managing her own secretions she does have tonsillar exudate and cervical lymphadenopathy. I suspect this was causing her tachycardia seen previously. Urinalysis did not show any growth either did blood cultures from a couple days ago. She overall appears well vitals are stable I see no need for repeat workup. Started on amoxicillin for strep Discharge Plan Departure Patient Disposition: Home Clinical Impression: Strep pharyngitis Instructions: DI for Strep Throat Activity Restrictions/Additional Instructions: *You have been diagnosed with strep pharyngitis *What to do: Increase fluids *Continue to take medications as directed Amoxicillin 500 mg twice a day for 10 days Tylenol 1000 mg every 6 hours for [id number] pain Stop Keflex no UTI *Follow up with your primary care provider in 2-3 days or call [phone] *Return to ER if you should have increased difficulty swallowing abdominal pain or any new, worsening or concerning symptoms Prescriptions: New amoxicillin 500 mg capsule 500 mg PO TID Qty: 30 0RF No Action progesterone micronized [Prometrium] 200 mg capsule 200 mg PO BEDTIME Qty: 30 3RF PNV cmb#95-ferrous fumarate-FA [ Multivitamins] 28 mg iron- 800 mcg tablet 1 tab PO DAILY Qty: 90 3RF promethazine 25 mg tablet 25 mg PO TID PRN (Reason: nausea and vomiting) Qty: 30 12RF promethazine 25 mg suppository 25 mg NV Q6H PRN (Reason: nausea and vomiting) Qty: 12 12RF ondansetron 8 mg tablet,disintegrating 8 mg PO Q8H PRN (Reason: nausea and vomiting) Qty: 20 12RF omeprazole 40 mg capsule,delayed release(DR/EC) 40 mg PO DAILY Qty: 90 0RF fluticasone propionate [Flonase Allergy Relief] 50 mcg/actuation spray,suspension 1 spray intranasal DAILY Rx Instructions: administer into each nostril cetirizine [All Day Allergy (cetirizine)] 10 mg tablet 10 mg PO DAILY PRN metoclopramide HCl [Reglan] 10 mg tablet 10 mg PO Q6H PRN (Reason: nausea and vomiting) Qty: 7 0RF cephalexin 500 mg capsule 500 mg PO BID 5 Days Qty: 10 0RF Referrals: ProviderAstrid [Primary Care Provider] - Stand Alone Forms: Patient Portal/API, Work Release Note
[2023-08-08 14:25] VITALS: PULSE 96; RESP 18; O2SAT 99
== END 2023-08-08 14:27 | disposition home or self-care (01) ==
PROVIDERS: Emergency Provider Emergency Medicine
DX: J02.0 Streptococcal pharyngitis (principal)
CPT/HCPCS: 81003; 87651; 99281; 99282

== ENCOUNTER 2023-08-15 11:57 | Emergency (ER) | payer OTHER, SELFPAY ==
[2023-08-15 12:00] VITALS: BP 102/69; PULSE 94; RESP 18; TEMP 36.5; O2SAT 99; BMI 28.7
--- NOTE | 2023-08-15 12:29 | ED_ITS ---
HPI - Nausea/Vomiting/Diarrhea General Chief complaint: Nausea/Vomiting/Diarrhea Stated complaint: Nausea, vomiting, headache, dizziness Time Seen by Provider: 08/15/23 12:29 Source: patient Mode of arrival: Ambulatory Limitations: no limitations History of Present Illness HPI Narrative: This is a 32-year-old female A3 currently 9 weeks who has a history of hyperemesis with prior pregnancies. Patient returns with complaint of nausea vomiting. She states she has felt a little dizzy. She does have some mild headache. She denies any fevers. She has had some mild nasal congestion. No sore throat. States she has been little bit improved but has had nausea vomiting on and off since she was last here. She states she has been little bit constipated but stooling. States stools have been hard. She has had no urinary symptoms. No new vaginal bleeding or discharge. Little bloated but denies any abdominal pain. Patient has Phenergan at home. Started to have some vomiting with solids today and presents. She has not appointment tomorrow with either Dr. Feldman or Dr. Rodriguez. She does have a prescription for Zofran but finds it not very helpful for her nausea she finds it constipating so has not voided that. She does have a script for some Reglan tried it once was mildly helpful. But she has been using Phenergan preferentially. Related Data Home Medications Medication Instructions Recorded Confirmed cetirizine 10 mg tablet (All Day 10 mg PO DAILY PRN 07/19/23 08/02/23 Allergy (cetirizine)) fluticasone propionate 50 1 spray intranasal DAILY 07/19/23 08/02/23 mcg/actuation nasal spray,suspension (Flonase Allergy Relief) Previous Rx's Medication Instructions Recorded progesterone micronized 200 mg 200 mg PO BEDTIME #30 caps 07/12/23 capsule (Prometrium) vit no.95-ferrous 1 tab PO DAILY #90 tabs 07/17/23 fumarate 28 mg-folic acid 800 mcg tablet ( Multivitamins) ondansetron 8 mg disintegrating 8 mg PO Q8H PRN nausea and 07/23/23 tablet vomiting #20 tabs promethazine 25 mg rectal 25 mg LA Q6H PRN nausea and 07/23/23 suppository vomiting #12 ea promethazine 25 mg tablet 25 mg PO TID PRN nausea and 07/23/23 vomiting #30 tabs omeprazole 40 mg capsule,delayed 40 mg PO DAILY #90 caps 07/24/23 release metoclopramide HCl 10 mg tablet 10 mg PO Q6H PRN nausea and 08/06/23 (Reglan) vomiting #7 tabs amoxicillin 500 mg capsule 500 mg PO TID #30 caps 08/08/23 Allergies Allergy/AdvReac Type Severity Reaction Status Date / Time almond Allergy Intermediate ITCHING Verified 08/08/23 11:32 Review of Systems Review of Systems ROS Unobtainable: All systems reviewed & are unremarkable except as noted in HPI and below Patient History Medical History Endometrial hyperplasia Eczema H/O being hospitalized (~11/2017) Acid reflux HPV (human papilloma virus) anogenital infection (~02/2018) Colitis (~11/2017) Ovarian cyst SAB (spontaneous ) (~07/2017) Hyperemesis gravidarum Migraine Surgical History H/O wisdom tooth extraction H/O colposcopy with cervical biopsy (~02/2018) H/O laparoscopy (~01/2017) Family History Mother Endometriosis Father Ulcerative colitis Grandmother Cancer Grandfather Lung cancer Grandmother Leukemia Hemorrhage affecting 10th Grandfather Diabetes mellitus Altered cardiac tissue perfusion History of open heart surgery Tremors of nervous system Aunt Ovarian mass Uncle Diverticulitis Family/Other Ovarian cancer Social History marital status: number of children: 1 household members: spouse and children lives independently: Yes caregiver/support person: Yes [facility] pets and animals: No education level: college (some college) occupational status: employed (active duty) current occupational exposures/hazards: No special tacos needs: No travel history: over 6 months ago seatbelt use: always helmet use: No water heater temp set < 120 deg: Yes working smoke detector in home: Yes fire extinguisher in home: Yes carbon monox detector in home: Yes firearms in home: No do you feel safe at home: Yes Smoking Status: Never smoker second hand exposure: No (Not currently but growing up : yes) alcohol intake: former substance use type: does not use during the past year weight has: remained stable well-balanced diet: about half the time daily servings fruits/ve-4 caffeine: Yes (minimal when ) Type(s) of exercise: walking, bicycling and running Smoking Status: Never smoker alcohol intake frequency: other Substance Use Type: does not use Exam Narrative Exam Narrative: GENERAL: Alert and oriented x three, female in mild distress HEENT: Head normocephalic, atraumatic, EOMI, pupils reactive, face symmetric, moist mucous membranes NECK: Supple, full range of motion CARDIOVASCULAR: Regular rate and rhythm without murmurs, rubs or gallops. RESPIRATORY: Breath sounds equal bilaterally, no wheezes rales or rhonchi. ABDOMEN: Soft, nontender. Normoactive bowel sounds all 4 quadrants. No guarding or rebound, rigidity, no mass : No CVA tenderness EXTREMITIES: Normal range of motion, no clubbing or edema. Neurovascularly intact NEUROLOGICAL: Cranial nerves II through XII grossly intact. Moving all extremities SKIN: Warm, dry, no petechiae, no rashes or lesions. Initial Vital Signs Initial Vital Signs: Vital Signs Temperature 97.7 F 08/15/23 12:00 Pulse Rate 94 H 08/15/23 12:00 Respiratory Rate 18 08/15/23 12:00 Blood Pressure 102/69 08/15/23 12:00 Pulse Oximetry 99 08/15/23 12:00 Oxygen Delivery Method Room Air 08/15/23 12:00 Course Orders Ordered: ED Orders 08/15/23 12:18 CBC Auto Diff [Complete Blood Count AUTO DIFF] Stat CMP [Comprehensive Metabolic Panel] Stat Lipase Stat Discontinued Medications Sodium Chloride (Normal Saline 0.9%) 1,000 mls @ 1,000 mls/hr IV BOLUS ONE Stop: 08/15/23 13:33 Last Infusion: 08/15/23 13:24 Dose: Infused Documented By: Admin: 08/15/23 12:43 Dose: 1,000 mls/hr Documented By: JAMES Ondansetron HCl (Ondansetron 4 Mg/2 Ml Inj) 4 mg IV NOW ONE Stop: 08/15/23 12:35 Last Admin: 08/15/23 12:43 Dose: 4 mg Documented By: JAMES Vital Signs Vital signs: Vital Signs - 8 hr 08/15/23 12:00 08/15/23 13:29 Temperature 97.7 F Pulse Rate 94 H 77 Respiratory Rate 18 16 Blood Pressure 102/69 105/67 Pulse Oximetry 99 100 Oxygen Delivery Method Room Air Room Air MDM - Nausea/Vomiting/Diarrhea Lab Data 08/15/23 12:18 08/15/23 12:18 Labs: Lab Results 08/15/23 Range/Units 12:18 WBC 9.3 (4.5-11.0) X10^3/uL RBC 4.10 (4.0-5.2) X10^6/uL Hgb 12.3 (12.0-16.0) g/dL Hct 36.1 (36-46) % MCV 87.9 (80-100) fL MCH 30.0 (26-34) PG MCHC 34.2 (30-36) % RDW 13.7 (11.6-14.8) % Plt Count 491 H (150-400) X10^3/uL Neut % (Auto) 67.2 (50-75) % Lymph % (Auto) 26.0 (25-40) % [place] % (Auto) 6.3 (3-14) % Eos % (Auto) 0.3 L (2-4) % Baso % (Auto) 0.2 (0-2) % Neut # (Auto) 6200 (5017-6936) /uL Lymph # (Auto) 2400 (8011-4066) /uL [place] # (Auto) 600 (0-900) /uL Eos # (Auto) 0 (0-450) /uL Baso # (Auto) 0 (0-100) /uL Sodium 135 L (137-145) mmol/L Potassium 3.6 (3.4-5.1) mmol/L Chloride 103 (98-107) mmol/L Carbon Dioxide 27 (22-32) mmol/L BUN 8 (7-17) mg/dL Creatinine 0.49 L (0.52-1.04) mg/dL Estimated GFR > 60 (>60) mL/min BUN/Creatinine Ratio 16.3 (6-22) Glucose 86 (70-100) mg/dL Calcium 8.9 (8.4-10.2) mg/dL Total Bilirubin 0.5 (0.2-1.3) mg/dL AST 24 (14-36) IU/L ALT 18 (<35) IU/L Alkaline Phosphatase 59 (38-126) U/L Total Protein 7.4 (6.3-8.2) g/dL Albumin 4.3 (3.5-5.0) g/dL Globulin 3.1 (1.7-4.1) g/dL Albumin/Globulin Ratio 1.4 (1.0-2.8) Lipase 108 D (23-300) U/L Urine Dip Bedside Urine Glucose Negative Bedside Urine Bilirubin - Negative Bedside Urine Ketone - Negative Urine Specific [place] 1.010 Bedside Urine Occult Blood - Negative Bedside Urine pH 8.0 Bedside Urine Protein - Negative Bedside Urine Urobilinogen - Negative Bedside Urine Nitrite - Negative Bedside Urine Leukocytes - Negative Esterase MDM Narrative Medical decision making narrative: Labs show white count 9.3 hemoglobin 12.3 of 491, sodium is 135 potassium 3.6 chloride 103 with CO2 of 27 BUN 8, creatinine 0.49 glucose 86, normal lipase at 108. POC of urine is negative. Patient received fluids, Zofran. She has not had any persistent vomiting. Her labs overall reassuring vitals are appropriate. She would like to return home. Blood pressure is little bit lower but has been low in general with prior visits. Patient states this is normal for. She does feel somewhat improved it does not wish to stay for any additional fluids. She was follow up tomorrow with OBGYN she states she has been set up in the past for outpatient infusions and fluids with OBGYN for hyperemesis. Discussed return precautions all questions answered. Discharge Plan Departure Patient Disposition: Home Clinical Impression: Vomiting affecting Activity Restrictions/Additional Instructions: Follow up but your appointment tomorrow with OBGYN, I hope that you continue to feel improved. Continue with your home medications as prescribed. Please return if you have fevers, worsening abdominal pain or persistent vomiting, lightheadedness or passing out, severe headaches, new back or flank pain, vaginal bleeding or other new or concerning changes. Prescriptions: No Action progesterone micronized [Prometrium] 200 mg capsule 200 mg PO BEDTIME Qty: 30 3RF PNV cmb#95-ferrous fumarate-FA [ Multivitamins] 28 mg iron- 800 mcg tablet 1 tab PO DAILY Qty: 90 3RF promethazine 25 mg tablet 25 mg PO TID PRN (Reason: nausea and vomiting) Qty: 30 12RF promethazine 25 mg suppository 25 mg LA Q6H PRN (Reason: nausea and vomiting) Qty: 12 12RF ondansetron 8 mg tablet,disintegrating 8 mg PO Q8H PRN (Reason: nausea and vomiting) Qty: 20 12RF omeprazole 40 mg capsule,delayed release(DR/EC) 40 mg PO DAILY Qty: 90 0RF fluticasone propionate [Flonase Allergy Relief] 50 mcg/actuation spray,suspension 1 spray intranasal DAILY Rx Instructions: administer into each nostril cetirizine [All Day Allergy (cetirizine)] 10 mg tablet 10 mg PO DAILY PRN metoclopramide HCl [Reglan] 10 mg tablet 10 mg PO Q6H PRN (Reason: nausea and vomiting) Qty: 7 0RF amoxicillin 500 mg capsule 500 mg PO TID Qty: 30 0RF Referrals: Ania Feldman MD [Physician] - Provider,Astrid JOHNSON [Primary Care Provider] - Stand Alone Forms: Patient Portal/API
[2023-08-15 12:41] LABS: Add Manual Diff / Slide Review NO; Basophils Absolute Auto 0 /uL (0-100); Basophils Percent Auto 0.2 % (0-2); Eosinophils Absolute Auto 0 /uL (0-450); Eosinophils Percent Auto 0.3 % (2-4); Hematocrit 36.1 % (36-46); Hemoglobin 12.3 g/dL (12.0-16.0); Lymphocytes Absolute Auto 2400 /uL (1100-4500); Mean Corpuscular HGB Conc 34.2 % (30-36); Mean Corpuscular Volume 87.9 fL (80-100); Monocytes Absolute Auto 600 /uL (0-900); Monocytes Percent Auto 6.3 % (3-14); Neutrophils Absolute Auto 6200 /uL (1500-7000); Neutrophils Percent Auto 67.2 % (50-75); Platelet Count 491 X10^3/uL (150-400); Red Cell Distribution Width 13.7 % (11.6-14.8); White Blood Cell Count 9.3 X10^3/uL (4.5-11.0)
[2023-08-15] MEDS: SODIUM CHLORIDE 0.9% 1,000 ML 1000 ML IV (12:43)
[2023-08-15] MEDS: ONDANSETRON 4 MG/2 ML INJ IV (12:43)
[2023-08-15 12:49] LABS: Alanine Aminotransferase 18 IU/L (<35); Albumin 4.3 g/dL (3.5-5.0); Albumin Globulin Ratio 1.4 (1.0-2.8); Alkaline Phosphatase 59 U/L (38-126); Aspartate Aminotransferase 24 IU/L (14-36); BUN Creatinine Ratio 16.3 (6-22); Bilirubin Total 0.5 mg/dL (0.2-1.3); Blood Urea Nitrogen 8 mg/dL (7-17); Calcium 8.9 mg/dL (8.4-10.2); Carbon Dioxide 27 mmol/L (22-32); Chloride 103 mmol/L (98-107); Estimated Glomerular Filt Rate > 60 mL/min (>60); Globulin 3.1 g/dL (1.7-4.1); Glucose 86 mg/dL (70-100); HEMOLYSIS < 15 (0-50); Lipase 108 U/L (23-300); Potassium 3.6 mmol/L (3.4-5.1); Sodium 135 mmol/L (137-145); Total Protein 7.4 g/dL (6.3-8.2)
[2023-08-15 13:29] VITALS: BP 105/67; PULSE 77; RESP 16; O2SAT 100
== END 2023-08-15 14:12 | disposition home or self-care (01) ==
PROVIDERS: Emergency Provider Emergency Medicine
DX: O21.9 Vomiting of pregnancy, unspecified (principal); Z3A.09 9 weeks gestation of pregnancy
CPT/HCPCS: 36415; 80053; 81003; 83690; 85025; 96361; 96374; 99284; J2405

== ENCOUNTER 2023-08-18 09:47 | Observation (INO) | payer OTHER, SELFPAY ==
[2023-08-18] MEDS: LACTATED RINGERS 1,000 ML 1000 ML IV ×2 (10:32→12:12)
[2023-08-18] MEDS: ONDANSETRON 4 MG/2 ML INJ IV (10:33)
[2023-08-18 10:38] VITALS: BP 101/68; PULSE 83; RESP 20; TEMP 36; O2SAT 100
[2023-08-18] MEDS: PROMETHAZINE 25 MG TABLET 12.5 MG PO (12:12)
--- NOTE | 2023-08-18 12:35 | PC.NURSE ---
Liter #2 of IV complete, IV 20 guage in Right AC discontinued. Catheter intact. Pt up to void. States she is feeling better. Pt d/c home. No questions at this time.
== END 2023-08-18 12:40 | disposition home or self-care (01) ==
PROVIDERS: Admitting Provider Obstetrics & Gynecology; Referring Provider Obstetrics & Gynecology; Visit Provider Obstetrics & Gynecology
DX: O21.0 Mild hyperemesis gravidarum (principal); Z3A.00 Weeks of gestation of pregnancy not specified
CPT/HCPCS: 96360; 96361; G0378; G0379; J2405

== ENCOUNTER 2023-09-13 17:56 | Emergency (ER) | payer OTHER, SELFPAY ==
[2023-09-13 18:06] VITALS: BP 118/54; PULSE 110; RESP 20; TEMP 37.6; O2SAT 97; BMI 29.4
[2023-09-13 18:41] LABS: Add Manual Diff / Slide Review NO; Basophils Absolute Auto 100 /uL (0-100); Basophils Percent Auto 0.5 % (0-2); Eosinophils Absolute Auto 0 /uL (0-450); Hematocrit 33.4 % (36-46); Hemoglobin 11.4 g/dL (12.0-16.0); Lymphocytes Absolute Auto 900 /uL (1100-4500); Lymphocytes Percent Auto 5.8 % (25-40); Mean Corpuscular HGB Conc 34.2 % (30-36); Mean Corpuscular Hemoglobin 30.6 PG (26-34); Mean Corpuscular Volume 89.4 fL (80-100); Monocytes Absolute Auto 700 /uL (0-900); Monocytes Percent Auto 4.6 % (3-14); Neutrophils Absolute Auto 14300 /uL (1500-7000); Neutrophils Percent Auto 89.1 % (50-75); Platelet Count 319 X10^3/uL (150-400); Red Blood Cell Count 3.73 X10^6/uL (4.0-5.2); Red Cell Distribution Width 14.7 % (11.6-14.8); White Blood Cell Count 16.1 X10^3/uL (4.5-11.0)
[2023-09-13 18:43] VITALS: PULSE 113; O2SAT 91
[2023-09-13] MEDS: LACTATED RINGERS 1,000 ML 1000 ML IV ×2 (18:47→20:38)
[2023-09-13] MEDS: ONDANSETRON 4 MG/2 ML INJ IV (18:48)
[2023-09-13 18:56] LABS: Alanine Aminotransferase 12 IU/L (<35); Albumin 3.9 g/dL (3.5-5.0); Albumin Globulin Ratio 1.2 (1.0-2.8); Alkaline Phosphatase 67 U/L (38-126); Aspartate Aminotransferase 22 IU/L (14-36); Bilirubin Total 0.8 mg/dL (0.2-1.3); Blood Urea Nitrogen 5 mg/dL (7-17); Calcium 8.5 mg/dL (8.4-10.2); Carbon Dioxide 22 mmol/L (22-32); Chloride 104 mmol/L (98-107); Estimated Glomerular Filt Rate > 60 mL/min (>60); Globulin 3.2 g/dL (1.7-4.1); Glucose 114 mg/dL (70-100); HEMOLYSIS < 15 (0-50); Lipase 32 U/L (23-300); Potassium 3.3 mmol/L (3.4-5.1); Sodium 133 mmol/L (137-145); Total Protein 7.1 g/dL (6.3-8.2)
[2023-09-13] MEDS: ACETAMINOPHEN IV 1,000 MG/100 ML VIAL 400 MG IV (18:59)
[2023-09-13 19:00] VITALS: PULSE 113; O2SAT 98
[2023-09-13 19:14] LABS: Strep Grp A by PCR Rapid Positive (Negative)
[2023-09-13 19:30] VITALS: PULSE 97; O2SAT 96
--- NOTE | 2023-09-13 19:42 | ED_ITS ---
HPI - Nausea/Vomiting/Diarrhea General Chief complaint: Nausea/Vomiting/Diarrhea Stated complaint: TORRES, fever, nausea, vomiting, 13 wks Time Seen by Provider: 09/13/23 18:33 Source: patient, RN notes reviewed and old records reviewed Mode of arrival: Ambulatory Limitations: no limitations History of Present Illness HPI Narrative: 32-year-old female A3, 14 weeks with known hyperemesis gravidarum receiving Zofran and lactated Ringer's twice weekly through OB Gynecology. Patient presents today with increased nausea and vomiting unable to keep anything down, headache, body aches, sore throat and low-grade fever. Patient states she had improved after her last strep a infection, she took amoxicillin felt better afterwards. She states she has been doing okay overall but started having symptoms in the last 24 hours with fevers sore throat, enlarged lymph nodes, and some increased nausea and vomiting. She has been getting her infusions twice weekly. She states no abdominal back or flank pain. Has not been able to keep anything down today. No urinary symptoms described. Patient is using Zofran and promethazine at home which is somewhat helpful. She notes she has a toddler at home who is at daycare and there has been a lot of infections and she states they post on the door at the school that common infections during the time when which has been strep at their facility. Has allergies almond. Related Data Home Medications Medication Instructions Recorded Confirmed cetirizine 10 mg tablet (All Day 10 mg PO DAILY PRN 07/19/23 09/13/23 Allergy (cetirizine)) fluticasone propionate 50 1 spray intranasal DAILY 07/19/23 09/13/23 mcg/actuation nasal spray,suspension (Flonase Allergy Relief) Previous Rx's Medication Instructions Recorded progesterone micronized 200 mg 200 mg PO BEDTIME #30 caps 07/12/23 capsule (Prometrium) vit no.95-ferrous 1 tab PO DAILY #90 tabs 07/17/23 fumarate 28 mg-folic acid 800 mcg tablet ( Multivitamins) ondansetron 8 mg disintegrating 8 mg PO Q8H PRN nausea and 07/23/23 tablet vomiting #20 tabs promethazine 25 mg rectal 25 mg NE Q6H PRN nausea and 07/23/23 suppository vomiting #12 ea promethazine 25 mg tablet 25 mg PO TID PRN nausea and 07/23/23 vomiting #30 tabs omeprazole 40 mg capsule,delayed 40 mg PO DAILY #90 caps 07/24/23 release metoclopramide HCl 10 mg tablet 10 mg PO Q6H PRN nausea and 08/06/23 (Reglan) vomiting #7 tabs amoxicillin 500 mg capsule 500 mg PO TID #30 caps 08/08/23 amoxicillin 500 mg tablet 500 mg PO Q8H #30 tabs 09/13/23 Allergies Allergy/AdvReac Type Severity Reaction Status Date / Time almond Allergy Intermediate ITCHING Verified 09/13/23 11:22 Review of Systems Review of Systems ROS Unobtainable: All systems reviewed & are unremarkable except as noted in HPI and below Patient History Medical History Endometrial hyperplasia Eczema H/O being hospitalized (~11/2017) Acid reflux HPV (human papilloma virus) anogenital infection (~02/2018) Colitis (~11/2017) Ovarian cyst SAB (spontaneous ) (~07/2017) Hyperemesis gravidarum Migraine Surgical History H/O wisdom tooth extraction H/O colposcopy with cervical biopsy (~02/2018) H/O laparoscopy (~01/2017) Family History Mother Endometriosis Father Ulcerative colitis Grandmother Cancer Grandfather Lung cancer Grandmother Leukemia Hemorrhage affecting 10th Grandfather Diabetes mellitus Altered cardiac tissue perfusion History of open heart surgery Tremors of nervous system Aunt Ovarian mass Uncle Diverticulitis Family/Other Ovarian cancer Social History marital status: number of children: 1 household members: spouse and children lives independently: Yes caregiver/support person: Yes housing: [facility]) pets and animals: No education level: college (some college) occupational status: employed (active duty) current occupational exposures/hazards: No special tacos needs: No travel history: over 6 months ago seatbelt use: always helmet use: No water heater temp set < 120 deg: Yes working smoke detector in home: Yes fire extinguisher in home: Yes carbon monox detector in home: Yes firearms in home: No do you feel safe at home: Yes Smoking Status: Never smoker second hand exposure: No (Not currently but growing up : yes) alcohol intake: former substance use type: does not use during the past year weight has: remained stable well-balanced diet: about half the time daily servings fruits/ve-4 caffeine: Yes (minimal when ) Type(s) of exercise: walking, bicycling and running Smoking Status: Never smoker alcohol intake frequency: other Substance Use Type: does not use Exam Narrative Exam Narrative: GEN: well nourished, female, alert and oriented x 3, patient appears to be in mild distress. HEENT: Atraumatic, pupils are equal round reactive to light, extraocular movements are intact, nares are clear, there is no conjunctival pallor. Throat is is erythematous with tonsillar exudates, no uvula deviation, bilateral tonsillar enlargement. No stridor. Mildly hoarse. HEART: Regular rate and rhythm without murmur, clicks, rubs. LUNGS:Lungs clear to auscultation, no wheezes, rales, crackles, chest moves symmetrically ABD:bowel sounds normal, soft, non-tender, no guarding, rebound, rigidity, no masses noted, no hepatosplenomegaly :No CVA tenderness MSCL: Muscles strength 5/5 upper and lower extremities, full range of motion NEURO:CN 2-12 intact, sensation normal Initial Vital Signs Initial Vital Signs: Vital Signs Temperature 99.7 F H 09/13/23 18:06 Pulse Rate 110 H 09/13/23 18:06 Respiratory Rate 20 09/13/23 18:06 Blood Pressure 118/54 L 09/13/23 18:06 Pulse Oximetry 97 09/13/23 18:06 Oxygen Delivery Method Room Air 09/13/23 18:06 Course Orders Ordered: ED Orders 09/13/23 18:27 CBC Auto Diff [Complete Blood Count AUTO DIFF] Stat CMP [Comprehensive Metabolic Panel] Stat Lipase Stat 09/13/23 18:34 Respiratory Panel (Film Array) Stat Strep Grp A by PCR Rapid Stat 09/13/23 19:50 Urine Culture Stat Urine Microscopic Stat Discontinued Medications Lactated Ringer's (Lactated Ringers) 1,000 mls @ 1,000 mls/hr IV BOLUS ONE Stop: 09/13/23 19:32 Last Infusion: 09/13/23 19:50 Dose: Infused Documented By: Admin: 09/13/23 18:47 Dose: 1,000 mls/hr Documented By: TOD Acetaminophen (Ofirmev) 1,000 mg in 100 mls @ 400 mls/hr IV NOW ONE Stop: 09/13/23 19:04 Last Infusion: 09/13/23 19:18 Dose: Infused Documented By: Admin: 09/13/23 18:59 Dose: 400 mls/hr Documented By: ARIS Lactated Ringer's (Lactated Ringers) 1,000 mls @ 1,000 mls/hr IV BOLUS ONE Stop: 09/13/23 20:59 Last Infusion: 09/13/23 21:59 Dose: Infused Documented By: Infusion: 09/13/23 21:00 Dose: 1,000 mls/hr Documented By: Infusion: 09/13/23 20:38 Dose: 0 mls/hr Documented By: Admin: 09/13/23 20:38 Dose: 1,000 mls/hr Documented By: JAMES Ceftriaxone Sodium 1,000 mg/ (Sodium Chloride) 100 mls @ 200 mls/hr IV NOW ONE Stop: 09/13/23 20:01 Last Infusion: 09/13/23 21:00 Dose: Infused Documented By: Admin: 09/13/23 20:12 Dose: 200 mls/hr Documented By: JAMES Ondansetron HCl (Ondansetron 4 Mg/2 Ml Inj) 4 mg IV NOW ONE Stop: 09/13/23 18:34 Last Admin: 09/13/23 18:48 Dose: 4 mg Documented By: TOD Promethazine HCl (Promethazine 25 Mg Tablet) 25 mg PO NOW ONE Stop: 09/13/23 20:01 Last Admin: 09/13/23 20:12 Dose: 25 mg Documented By: JAMES Vital Signs Vital signs: Vital Signs - 8 hr 09/13/23 19:00 09/13/23 19:30 09/13/23 22:02 Temperature 98.9 F Pulse Rate 113 H 97 H 83 Respiratory Rate 16 Blood Pressure 94/59 L Pulse Oximetry 98 96 94 Oxygen Delivery Method Room Air Room Air MDM - Nausea/Vomiting/Diarrhea Lab Data 09/13/23 18:27 09/13/23 18:27 Labs: Lab Results 09/13/23 09/13/23 09/13/23 Range/Units 18:27 18:34 19:50 WBC 16.1 H (4.5-11.0) X10^3/uL RBC 3.73 L (4.0-5.2) X10^6/uL Hgb 11.4 L (12.0-16.0) g/dL Hct 33.4 L (36-46) % MCV 89.4 (80-100) fL MCH 30.6 (26-34) PG MCHC 34.2 (30-36) % RDW 14.7 (11.6-14.8) % Plt Count 319 (150-400) X10^3/uL Neut % (Auto) 89.1 H (50-75) % Lymph % (Auto) 5.8 L (25-40) % Howell % (Auto) 4.6 (3-14) % Eos % (Auto) 0.0 L (2-4) % Baso % (Auto) 0.5 (0-2) % Neut # (Auto) 38986 H (7350-4981) /uL Lymph # (Auto) 900 L (4681-9880) /uL Howell # (Auto) 700 (0-900) /uL Eos # (Auto) 0 (0-450) /uL Baso # (Auto) 100 (0-100) /uL Sodium 133 L (137-145) mmol/L Potassium 3.3 L (3.4-5.1) mmol/L Chloride 104 (98-107) mmol/L Carbon Dioxide 22 (22-32) mmol/L BUN 5 L (7-17) mg/dL Creatinine 0.50 L (0.52-1.04) mg/dL Estimated GFR > 60 (>60) mL/min BUN/Creatinine Ratio 10.0 (6-22) Glucose 114 H (70-100) mg/dL Calcium 8.5 (8.4-10.2) mg/dL Total Bilirubin 0.8 (0.2-1.3) mg/dL AST 22 (14-36) IU/L ALT 12 (<35) IU/L Alkaline Phosphatase 67 (38-126) U/L Total Protein 7.1 (6.3-8.2) g/dL Albumin 3.9 (3.5-5.0) g/dL Globulin 3.2 (1.7-4.1) g/dL Albumin/Globulin Ratio 1.2 (1.0-2.8) Lipase 32 (23-300) U/L Urine RBC None seen (0-5/HPF) Urine WBC 1-5/hpf (0-5/HPF) Ur Squamous Epith Cells 5-10 /hpf H (0-5/HPF) Urine Bacteria Occasional (0-1) (None) Ur Culture Indicated? Specimen cultured Vol Urine Centrifuged 10ml (spun) Chlamy pneumoniae PCR Not detected (Not Detect) Adenovirus (PCR) Not detected (Not Detect) B.parapertussis DNA PCR Not detected (Not Detecte) Coronavirus OC43 (PCR) Not detected (Not Detect) Coronavirus HKU1 (PCR) Not detected (Not Detect) Coronavirus 229E (PCR) Not detected (Not Detect) SARS-CoV-2 (PCR) Not detected (Not Detecte) Coronavirus NL63 (PCR) Not detected (Not Detect) Human Metapneumovir PCR Not detected (Not Detect) Influenza Type A (PCR) Not detected (Not Detect) Influenza Type B (PCR) Not detected (Not Detect) M. pneumoniae (PCR) Not detected (Not Detect) Parainfluenza 1 (PCR) Not detected (Not Detect) Parainfluenza 2 (PCR) Not detected (Not Detect) Parainfluenza 3 (PCR) Not detected (Not Detect) Parainfluenza 4 (PCR) Not detected (Not Detect) RSV (PCR) Not detected (Not Detect) Entero/Rhino (PCR) Not detected (Not Detect) Group A Strep (PCR) Positive H (Negative) Urine Dip Bedside Urine Glucose Negative Bedside Urine Bilirubin - Negative Bedside Urine Ketone ++ 40 Urine Specific [place] 1.015 Bedside Urine Occult Blood - Negative Bedside Urine pH 6.0 Bedside Urine Protein - Negative Bedside Urine Urobilinogen - Negative Bedside Urine Nitrite - Negative Bedside Urine Leukocytes - Negative Esterase MDM Narrative Medical decision making narrative: 32-year-old female with history of hyperemesis gravidarum, patient presents with complaint of upper respiratory symptoms and pharyngitis. She is positive for group a strep was positive approximately a month ago took amoxicillin did have improvement but notes she has a toddler and daycare and has had multiple illnesses from daycare. White count of 16 hemoglobin of 11, platelets of 319. Sodium is 133 potassium 3.3, chloride 104 with a CO2 of 22 BUN 5 and creatinine of 0.5, glucose of 114, calcium 8.5, LFTs Respiratory panel is negative Group a strep is positive, patient was positive approximately a month ago with similar symptoms at that time. Was treated with amoxicillin for 10 days. Urine shows ketones no other change. Patient received Zofran, Tylenol and fluids, patient feels somewhat improved but asked for 2 L of fluids as well as promethazine. Discussed option of doing injection penicillin versus amoxicillin. She prefers amoxicillin. Asked if we can give IV version rather than 1st dose being oral. We will give Rocephin although not quite complete coverage. Discharge Plan Departure Patient Disposition: Home Clinical Impression: Pharyngitis, streptococcal, Hyperemesis gravidarum Activity Restrictions/Additional Instructions: I hope you feel improved, you did test positive for group a strep today. Take antibiotics until completed. [facility] [place]. Continue your other home medications as prescribed. Please return if you are having any new or worsening symptoms, increasing swelling of your throat, difficulty with speaking, difficulty with swallowing saliva or secretions, persistent vomiting, fevers that do not respond to Tylenol or other new or concerning changes. Prescriptions: New amoxicillin 500 mg tablet 500 mg PO Q8H Qty: 30 0RF No Action progesterone micronized [Prometrium] 200 mg capsule 200 mg PO BEDTIME Qty: 30 3RF PNV cmb#95-ferrous fumarate-FA [ Multivitamins] 28 mg iron- 800 mcg tablet 1 tab PO DAILY Qty: 90 3RF promethazine 25 mg tablet 25 mg PO TID PRN (Reason: nausea and vomiting) Qty: 30 12RF promethazine 25 mg suppository 25 mg NE Q6H PRN (Reason: nausea and vomiting) Qty: 12 12RF ondansetron 8 mg tablet,disintegrating 8 mg PO Q8H PRN (Reason: nausea and vomiting) Qty: 20 12RF omeprazole 40 mg capsule,delayed release(DR/EC) 40 mg PO DAILY Qty: 90 0RF fluticasone propionate [Flonase Allergy Relief] 50 mcg/actuation spray,suspension 1 spray intranasal DAILY Rx Instructions: administer into each nostril cetirizine [All Day Allergy (cetirizine)] 10 mg tablet 10 mg PO DAILY PRN metoclopramide HCl [Reglan] 10 mg tablet 10 mg PO Q6H PRN (Reason: nausea and vomiting) Qty: 7 0RF amoxicillin 500 mg capsule 500 mg PO TID Qty: 30 0RF Referrals: [facility] [Primary Care Provider] - Stand Alone Forms: Patient Portal/API
[2023-09-13 19:52] LABS: Adenovirus Not Detected (Not Detect); B. parapertussis Not Detected (Not Detecte); Bordetella pertussis Not Detected (Not Detect); Chlamydophila pneumoniae Not Detected (Not Detect); Coronavirus 229E Not Detected (Not Detect); Coronavirus HKU1 Not Detected (Not Detect); Coronavirus NL 63 Not Detected (Not Detect); Coronavirus OC43 Not Detected (Not Detect); Human Metapneumovirus Not Detected (Not Detect); Human Rhinovirus/Enterovirus Not Detected (Not Detect); Influenza A Not Detected (Not Detect); Influenza B Not Detected (Not Detect); Mycoplasma pneumoniae Not Detected (Not Detect); Parainfluenza Virus 1 Not Detected (Not Detect); Parainfluenza Virus 2 Not Detected (Not Detect); Parainfluenza Virus 3 Not Detected (Not Detect); Parainfluenza Virus 4 Not Detected (Not Detect); Respiratory Syncytial Virus Not Detected (Not Detect); SARS- CoV-2 Not Detected (Not Detecte)
[2023-09-13] MEDS: cefTRIAXone 1,000 MG in SODIUM CHLORIDE 0.9% 100 ML 200 MG IV (20:12)
[2023-09-13] MEDS: PROMETHAZINE 25 MG TABLET PO (20:12)
[2023-09-13 20:31] LABS: Bacteria Urine Occasional (0-1); Culture Indicated Urine Specimen Cultured; RBC Urine None Seen (0-5/HPF); Squamous Epithelial Cell Urine 5-10 /HPF (0-5/HPF); Urine Volume 10mL (spun); WBC Urine 1-5/HPF (0-5/HPF)
[2023-09-13 22:02] VITALS: BP 94/59; PULSE 83; RESP 16; TEMP 37.2; O2SAT 94
== END 2023-09-13 22:03 | disposition home or self-care (01) ==
PROVIDERS: Emergency Provider Emergency Medicine
DX: O21.0 Mild hyperemesis gravidarum (principal); O26.892 Other specified pregnancy related conditions, second trimester; J02.0 Streptococcal pharyngitis; Z3A.14 14 weeks gestation of pregnancy
CPT/HCPCS: 36415; 80053; 81003; 81015; 83690; 85025; 87086; 87633; 87651; 96361; 96365; 96367; 96375; 99284; J0136; J0696; J2405

== ENCOUNTER → 2023-11-01 08:33 | Outpatient (CLI) | payer OTHER, SELFPAY ==
--- NOTE | 2023-11-01 08:34 | DI.US.S_ITS ---
PROCEDURE: US OB >= 14 WEEKS FETUS INDICATIONS: 20 week anatomy OUTSIDE/PRIOR DATING DATA: Last menstrual period (LMP): June 13, 2023. LMP-based estimated date of delivery (KENN): March 19, 2024. First dating scan (date and location): August 02, 2023. Estimated date of delivery (KENN) from first dating scan: March 19, 2024. TECHNIQUE: Real-time scanning was performed of the fetus, with image documentation and biometric measurements. Endovaginal scanning: Not performed COMPARISON: [facility], OB >= 14 WEEKS FETUS, 08/06/2023, 12:52. FINDINGS: General: A single living intrauterine gestation is present. Presentation: Vertex. Placenta: Placental position is posterior , without previa. Amniotic fluid index: 16.6 cm, normal range is 5-24 cm. Single deepest vertical pocket is 5.3 cm. heart rate: 150 beats per minute. Maternal cervical canal: 5.9 cm long. Normal lower limit is 2.5 cm. biometrics: Biparietal diameter: 4.8 cm, 20 weeks and 3 days Head circumference: 17.6 cm, 20 weeks and 1 day Abdominal circumference: 16.1 cm, 21 weeks and 1 day Femur length: 3.4 cm, 20 weeks and 4 days Clinically estimated gestational age: 21 weeks and 4 days Composite gestational age from present scan: 20 weeks and 4 days Estimated weight and percentile: 378 g which correlates with the 13th percentile based off gestational age. Anatomic survey: Neuro: Ventricles are non-dilated at less than 10 mm. Cisterna magna is normal at 3-11 mm. Cerebellum is normal in size and morphology. Nuchal skin fold: Normal at less than 6 mm between 14-21 weeks gestational age. Face: Nose and lips, facial profile are normal. Spine: No evidence for spina bifida. Heart: 4-chambered heart is present, with normal ventricular outflow tracts. Diaphragm: Diaphragm is intact. Stomach: Left-sided stomach is present. Kidneys: No hydronephrosis. Normal is less than 5 mm in 2nd trimester, less than 7 mm in 3rd trimester. Cord: 3-vessel cord has orthotopic insertion. Bladder: Normal in size. Extremities: All 4 extremities identified. IMPRESSION: Single living intrauterine gestation with estimated sonographic gestational age of approximately 20 weeks and 4 days versus 21 weeks and 4 days by last menstrual period. Expected interval growth has occurred. Estimated weight of approximately 378 g which correlates with the 13th percentile based off gestational age. Of note, head circumference measures at the 2nd percentile. Otherwise, unremarkable routine second-trimester anatomy screening survey. We strive to produce accurate, complete, and clear reports of imaging services. To assist us in improving patient care, this report was composed using standard report templates and voice recognition software. Therefore, it may contain abnormal punctuation, insertions and/or omissions. Occasional wrong-word or sound-alike substitutions may occur. Though we review the report and make efforts to correct it, we do recommend that the report be read carefully in proper context to recognize any text inaccuracies. Dictated by: Raciel Walker M.D. on 11/01/2023 at 15:28 Approved by: Raciel Walker M.D. on 11/01/2023 at 15:32
[2023-11-01 11:48] LABS: Add Manual Diff / Slide Review NO; Basophils Absolute Auto 0 /uL (0-100); Basophils Percent Auto 0.2 % (0-2); Eosinophils Absolute Auto 0 /uL (0-450); Eosinophils Percent Auto 0.3 % (2-4); Hematocrit 32.7 % (36-46); Hemoglobin 11.2 g/dL (12.0-16.0); Lymphocytes Absolute Auto 1600 /uL (1100-4500); Lymphocytes Percent Auto 16.7 % (25-40); Mean Corpuscular HGB Conc 34.1 % (30-36); Mean Corpuscular Hemoglobin 30.8 PG (26-34); Mean Corpuscular Volume 90.5 fL (80-100); Monocytes Absolute Auto 500 /uL (0-900); Monocytes Percent Auto 5.2 % (3-14); Neutrophils Absolute Auto 7300 /uL (1500-7000); Neutrophils Percent Auto 77.6 % (50-75); Platelet Count 392 X10^3/uL (150-400); Red Blood Cell Count 3.62 X10^6/uL (4.0-5.2); White Blood Cell Count 9.4 X10^3/uL (4.5-11.0)
[2023-11-01 16:20] LABS: Hepatitis B Surface Antigen NEGATIVE s/c (NEGATIVE); Rubella Antibody IgG 8.7 IU/mL (>15)
[2023-11-01 16:35] LABS: HIV 1 & 2 Ab/Ag 4th Gen Combo NEGATIVE (NEGATIVE); Hep C Virus Ab w/Reflex Quant NEGATIVE s/c (NEGATIVE)
[2023-11-02 06:08] LABS: RPR Screen Non Reactive (Non Reactive)
[2023-11-02 09:10] LABS: Varicella IgG Antibody 1564 index (Immune >165)
== END ==
PROVIDERS: Referring Provider Obstetrics & Gynecology; Visit Provider Obstetrics & Gynecology
DX: O09.292 Supervision of pregnancy with other poor reproductive or obstetric history, second trimester (principal); Z3A.20 20 weeks gestation of pregnancy
CPT/HCPCS: 36415; 76811; 80055; 86787; 86803; 86850; 86900; 86901; 87389